=== PATIENT | male | born 1940 | race Caucasian/White ===

== ENCOUNTER 2016-07-20 16:50 | Inpatient (IN) | payer MEDICARE ==
[2016-07-20] MEDS ORDERED: cefTRIAXone(*) 1 GM in NS 0.9% 50 ML* 50 ML IVPB ONE (17:05)
[2016-07-20] MEDS ORDERED: Albuterol/Ipratropium NEB.SOL* Albuterol 2.5 MG/Ipratropium 0.5 MG 3 ML INH ONE (17:05)
[2016-07-20] MEDS ORDERED: methylPREDNISolone 125 MG* 2 ML VIAL IV ONE (17:05)
[2016-07-20] MEDS ORDERED: Azithromycin IV(*) 500 MG in NS 0.9% 250 ML* 250 ML IVPB ONE (17:06)
[2016-07-20] MEDS ORDERED: NS 0.9% 1000 ML* 1,000 ML IV SCH (17:15)
[2016-07-20 17:36] LABS: Hematocrit 35 % (42-52); Hemoglobin 10.9 g/dl (14.0-18.0); Mean Corpuscular HGB Conc 32 g/dl (31-36); Mean Corpuscular Hemoglobin 31 pg (27-31); Mean Corpuscular Volume 99 fL (80-94); Mean Platelet Volume 9 um3 (7.4-10.4); Red Blood Count 3.51 10^6/ul (4.0-5.4); Red Cell Distribution Width 17 % (10.5-15); White Blood Count 11.8 10^3/ul (3.5-10.8)
[2016-07-20] MEDS ORDERED: cefTRIAXone(*) 1 GM ADVAN/BAG ONE (17:47)
[2016-07-20 17:56] LABS: ALT 8 U/L (7-52); AST 20 U/L (13-39); Albumin 3.4 g/dL (3.2-5.2); Alkaline Phosphatase 62 U/L (34-104); Anion Gap 8 mmol/L (2-11); BUN/Creatinine Ratio 18.3 (8-20); Blood Urea Nitrogen 38 mg/dL (6-24); C Reactive Protein 78.91 mg/L (< 5.00); CO2 Carbon Dioxide 25 mmol/L (22-32); Calcium 9.2 mg/dL (8.6-10.3); Chloride 99 mmol/L (101-111); Creatine Kinase 40 U/L (10-223); EGFR African American 40.3 (>60); EGFR Non-African American 31.4 (>60); Globulin 4.3 g/dL (2-4); Glucose 105 mg/dL (70-100); Lipase < 10 U/L (11.0-82.0); Magnesium 2.1 mg/dL (1.9-2.7); Potassium 4.4 mmol/L (3.5-5.0); Sodium 132 mmol/L (133-145); Total Protein 7.7 g/dL (6.4-8.9)
[2016-07-20 17:58] LABS: Troponin I 0.01 ng/mL (<0.04)
[2016-07-20] MEDS ORDERED: Azithromycin IV* 500 MG ADVAN VIAL IVPB ONE (18:13)
--- NOTE | 2016-07-20 18:58 | RAD ---
Indication: Shortness of breath. Single frontal view of the chest performed at 1730 hours was reviewed. Comparison is made with previous exam dated March 28, 2016. Hyperinflated lung hamilton with cardiomegaly is noted. Chronic interstitial disease is noted. When compared to previous exam right pleural effusion appears to be improved. IMPRESSION: CARDIOMEGALY WITH PROMINENT INTERSTITIAL MARKINGS SUSPICIOUS FOR VASCULAR CONGESTION SUPERIMPOSED UPON COPD.
[2016-07-20] MEDS ORDERED: Furosemide IV* 10 MG/ML VIAL (40 MG) IV ONE (19:05)
--- NOTE | 2016-07-20 19:06 | ED ---
Debra Ogden Alok, scribed for Molina Reyes MD on 07/20/16 at 1742 . Shortness of Breath - HPI Summary HPI Summary: Patient is a 75 year-old male BIBA to [facility] with constant SOB at rest. He states that his symptoms began 2 weeks ago, worse today. He was given a breathing treatment en route by EMS which has improved his symptoms. He states that his symptoms are worse with exertion. Positive diaphoresis and unproductive cough. Denies any fever, chest pain, or lower extremity edema. - History of Current Complaint Chief Complaint: EDShortnessOfBreath Time Seen by Provider: 07/20/16 17:01 Hx Obtained From: Patient Onset/Duration: Gradual Onset, Lasting Weeks, Still Present Timing: Constant Current Severity: Moderate Dyspnea At: Rest Aggrevating Factors: Movement Alleviating Factors: EMS Tx Associated Signs & Symptoms: Cough (Nonproductive), Diaphoresis - Allergy/Home Medications Allergies/Adverse Reactions: Allergies Allergy/AdvReac Type Severity Reaction Status Date / Time No Known Allergies Allergy Verified 05/09/16 07:55 PMH/Surg Hx/FS Hx/Imm Hx Cardiovascular History: Reports: Hx Atrial Fibrillation Respiratory History: Reports: Hx Chronic Obstructive Pulmonary Disease (COPD) Sensory History: Reports: Hx Contacts or Glasses - wears glassesw but does not have with him Denies: Hx Cataracts, Hx Eye Injury, Hx Eye Prosthesis, Hx Glaucoma, Hx Legally Blind, Hx Macular Degeneration, Hx Vision Problem, Hx Deafness, Hx Hearing Aid, Hx Hearing Problem, Other Sensory Impairments Opthamlomology History: Reports: Hx Contacts or Glasses - wears glassesw but does not have with him Denies: Hx Cataracts, Hx Eye Injury, Hx Eye Prosthesis, Hx Glaucoma, Hx Legally Blind, Hx Macular Degeneration, Hx Vision Problem, Other Sensory Impairments Infectious Disease History: Denies: Traveled Outside the [place] in Last 30 Days - Family History Known Family History: Negative: Diabetes - Social History Occupation: Retired Lives: With Family - Alcohol Use: None Substance Use Type: Reports: None Smoking Status (MU): Former Smoker Type: Cigarettes Have You Smoked in the Last Year: No Review of Systems Positive: Skin Diaphoresis. Negative: Fever Negative: Chest Pain Positive: Shortness Of Breath, Cough - Nonproductive Negative: Edema All Other Systems Reviewed And Are Negative: Yes Physical Exam - Summary Physical Exam Summary: General: Well-appearing, no pain distress Skin: Warm, color reflects adequate perfusion, dry Head/Face: Normal Eyes: EOMI, LETICIA ENT: Normal Neck: Supple, nontender Respiratory: Mild respiratory distress. Wheezes and rhonchi bilaterally Cardiovascular: RRR Abdominal: Nontender, soft Bowel: Present Misc: Normal; strength/ROM intact Neuro: Normal; sensory/motor intact, A&Ox3 Psych: Affect/mood appropriate Triage Information Reviewed: Yes Vital Signs On Initial Exam: Initial Vitals Temp 98.6 F 07/20/16 17:00 Vital Signs Reviewed: Yes Diagnostics - Vital Signs Vital Signs Temp Pulse Resp BP Pulse Ox 07/20/16 17:25 69 18 85/68 91 07/20/16 17:15 71 18 98 07/20/16 17:02 72 17 96 07/20/16 17:01 150/85 07/20/16 17:00 98.6 F - Laboratory Lab Results: Lab Results 07/20/16 07/20/16 07/20/16 Range/Units 17:10 17:10 17:10 WBC 11.8 H (3.5-10.8) 10^3/ul RBC 3.51 L (4.0-5.4) 10^6/ul Hgb 10.9 L (14.0-18.0) g/dl Hct 35 L (42-52) % MCV 99 H (80-94) fL MCH 31 (27-31) pg MCHC 32 (31-36) g/dl RDW 17 H (10.5-15) % Plt Count 190 (150-450) 10^3/ul MPV 9 (7.4-10.4) um3 Neut % (Auto) 79.5 (38-83) % Lymph % (Auto) 8.9 L (25-47) % Cochran % (Auto) 10.3 H (1-9) % Eos % (Auto) 0.8 (0-6) % Baso % (Auto) 0.5 (0-2) % Absolute Neuts (auto) 9.4 H (1.5-7.7) 10^3/ul Absolute Lymphs (auto) 1.0 (1.0-4.8) 10^3/ul Absolute Monos (auto) 1.2 H (0-0.8) 10^3/ul Absolute Eos (auto) 0.1 (0-0.6) 10^3/ul Absolute Basos (auto) 0.1 (0-0.2) 10^3/ul Absolute Nucleated RBC 0 10^3/ul Nucleated RBC % 0 INR (Anticoag Therapy) 1.89 H (0.89-1.11) APTT 32.4 (26.0-36.3) seconds Sodium 132 L (133-145) mmol/L Potassium 4.4 (3.5-5.0) mmol/L Chloride 99 L (101-111) mmol/L Carbon Dioxide 25 (22-32) mmol/L Anion Gap 8 (2-11) mmol/L BUN 38 H (6-24) mg/dL Creatinine 2.08 H (0.67-1.17) mg/dL Est GFR ( Amer) 40.3 (>60) Est GFR (Non-Af Amer) 31.4 (>60) BUN/Creatinine Ratio 18.3 (8-20) Glucose 105 H (70-100) mg/dL Lactic Acid (0.5-2.0) mmol/L Calcium 9.2 (8.6-10.3) mg/dL Magnesium 2.1 (1.9-2.7) mg/dL Total Bilirubin 0.90 (0.2-1.0) mg/dL AST 20 (13-39) U/L ALT 8 (7-52) U/L Alkaline Phosphatase 62 (34-104) U/L Total Creatine Kinase 40 (10-223) U/L CK-MB (CK-2) 4.7 (0.6-6.3) ng/mL Troponin I 0.01 (<0.04) ng/mL C-Reactive Protein 78.91 H (< 5.00) mg/L B-Natriuretic Peptide ( - 100) pg/mL Total Protein 7.7 (6.4-8.9) g/dL Albumin 3.4 (3.2-5.2) g/dL Globulin 4.3 H (2-4) g/dL Albumin/Globulin Ratio 0.8 L (1-3) Lipase < 10 L (11.0-82.0) U/L 07/20/16 07/20/16 Range/Units 17:10 17:10 WBC (3.5-10.8) 10^3/ul RBC (4.0-5.4) 10^6/ul Hgb (14.0-18.0) g/dl Hct (42-52) % MCV (80-94) fL MCH (27-31) pg MCHC (31-36) g/dl RDW (10.5-15) % Plt Count (150-450) 10^3/ul MPV (7.4-10.4) um3 Neut % (Auto) (38-83) % Lymph % (Auto) (25-47) % Cochran % (Auto) (1-9) % Eos % (Auto) (0-6) % Baso % (Auto) (0-2) % Absolute Neuts (auto) (1.5-7.7) 10^3/ul Absolute Lymphs (auto) (1.0-4.8) 10^3/ul Absolute Monos (auto) (0-0.8) 10^3/ul Absolute Eos (auto) (0-0.6) 10^3/ul Absolute Basos (auto) (0-0.2) 10^3/ul Absolute Nucleated RBC 10^3/ul Nucleated RBC % INR (Anticoag Therapy) (0.89-1.11) APTT (26.0-36.3) seconds Sodium (133-145) mmol/L Potassium (3.5-5.0) mmol/L Chloride (101-111) mmol/L Carbon Dioxide (22-32) mmol/L Anion Gap (2-11) mmol/L BUN (6-24) mg/dL Creatinine (0.67-1.17) mg/dL Est GFR ( Amer) (>60) Est GFR (Non-Af Amer) (>60) BUN/Creatinine Ratio (8-20) Glucose (70-100) mg/dL Lactic Acid 1.7 (0.5-2.0) mmol/L Calcium (8.6-10.3) mg/dL Magnesium (1.9-2.7) mg/dL Total Bilirubin (0.2-1.0) mg/dL AST (13-39) U/L ALT (7-52) U/L Alkaline Phosphatase (34-104) U/L Total Creatine Kinase (10-223) U/L CK-MB (CK-2) (0.6-6.3) ng/mL Troponin I (<0.04) ng/mL C-Reactive Protein (< 5.00) mg/L B-Natriuretic Peptide 733 H ( - 100) pg/mL Total Protein (6.4-8.9) g/dL Albumin (3.2-5.2) g/dL Globulin (2-4) g/dL Albumin/Globulin Ratio (1-3) Lipase (11.0-82.0) U/L Result Diagrams: 07/20/16 17:10 07/20/16 17:10 Lab Statement: Any lab studies that have been ordered have been reviewed, and results considered in the medical decision making process. Course/Dx - Course Assessment/Plan: ADMIT HOSPITALIST STABLE. - Diagnoses Provider Diagnoses: COPD (chronic obstructive pulmonary disease), CHF (congestive heart failure) Discharge - Discharge Plan Condition: Stable Disposition: ADMITTED TO [facility] Referrals: Jd Delgado MD [Primary Care Provider] - The documentation as recorded by the Debra lay Alok accurately reflects the service I personally performed and the decisions made by , Molina Reyes MD.
[2016-07-20] MEDS ORDERED: Albuterol 2.5 MG/3 ML NEB.SOL* (0.083%) INH PRN (19:43)
--- NOTE | 2016-07-20 21:10 | HP ---
HISTORY AND PHYSICAL: DATE OF ADMISSION: 07/20/16 PRIMARY CARE PHYSICIAN: Dr. Delgado. CHIEF COMPLAINT: Shortness of breath. HISTORY OF PRESENT ILLNESS: Mr. Jay is a 75-year-old man with a past medical history of COPD, on 3 L of home oxygen; AFib, on Eliquis; systolic CHF; CKD, who presents to the hospital with progressive shortness of breath. The patient states his symptoms began a little over 1 week ago with some mild shortness of breath with exertion; however, the past few days, especially today , it became much worse. He noticed that when he just walks to the bathroom and back, he gets profusely short of breath. Denies any chest pain. He noticed he has been wheezing a lot more and may be a slight increase in his cough. Denies any fever, chills. His cough is nonproductive. He states his has been sick recently with sinusitis and a cough. The patient had a flu shot this year. He is a former smoker. Denies any rhinorrhea. He has been using his home Dulera and felt that the breathing has progressed to the point where he needed to come to the hospital for further evaluation. PAST MEDICAL HISTORY: AFib, on Eliquis; COPD; CHF; CKD. PAST SURGICAL HISTORY: None. HOME MEDICATIONS: 1. Amiodarone 200 mg by mouth daily. 2. Potassium chloride 20 mEq by mouth daily. 3. Dulera 2 puffs inhaled 2 times daily. 4. Metoprolol succinate 50 mg by mouth daily. 5. Lasix 20 mg by mouth daily. 6. Diltiazem 120 mg by mouth daily. 7. Apixaban 5 mg by mouth 2 times daily. ALLERGIES: No known drug allergies. FAMILY HISTORY: Unknown. The patient is adopted. SOCIAL HISTORY: The patient is a former 2- to 1-noaj-ald-day smoker for 60 years, quit about 2 years ago. Denies any alcohol use or illicit drug use. Lives in a trailer with his . REVIEW OF SYSTEMS: A 12-point review of systems is negative except for that as noted in the HPI. PHYSICAL EXAMINATION GENERAL: The patient is a thin elderly male, lying in bed, in no apparent distress. VITAL SIGNS: On admission, temperature 98.6; heart rate 73; respiratory rate 17 ; O2 saturation 96% on 5 L, now weaned to 3 L; blood pressure 150/85. HEENT: Pupils are equal, round, and reactive to light and accommodation. Anicteric sclerae. Dry mucous membranes. NECK: No cervical adenopathy. LUNGS: The patient with poor air movement. Diffuse wheezing throughout. No rales appreciated at the bases. CARDIOVASCULAR: Rhythm sounds are regular. No murmurs, gallops, or rubs. ABDOMEN: Soft, nontender, nondistended. Bowel sounds positive. EXTREMITIES: No cyanosis, clubbing, or edema. NEURO: The patient is alert and oriented x3. No focal neurological deficits. DIAGNOSTIC STUDIES/LAB DATA: White blood cell count of 11.8, hemoglobin of 10.9, hematocrit of 35, platelets of 190. INR 1.89. Sodium of 132, potassium of 4.4, chloride of 99, BUN of 38, creatinine of 2.08, glucose of 105, lactic acid of 1.7. LFTs within normal limits. Troponin of 0.01. CRP of 78.91. B- natriuretic peptide is 733. EKG: Shows sinus rhythm, no acute ischemic changes, personally reviewed. Chest x-ray: Personally reviewed, shows cardiomegaly, hyperexpanded lungs, possibly some increased interstitial markings. ASSESSMENT AND PLAN: Chronic obstructive pulmonary disease exacerbation in a 75 - year-old male with past medical history of atrial fibrillation, chronic obstructive pulmonary disease, systolic congestive heart failure, and chronic kidney disease. 1. Chronic obstructive pulmonary disease exacerbation. The patient received Solu- Medrol in the ED as well as breathing treatments. We will continue round- the-clock DuoNebs, p.r.n. albuterol, and prednisone 40 mg by mouth daily. He received some antibiotics in the emergency department; however, I do not think the patient is infected. We will check a procalcitonin. Hold on any additional antibiotic therapy for now. Continue home supplemental oxygen. 2. Chronic systolic congestive heart failure. I do not think the patient has exacerbation. We will continue home beta neville, Lasix. 3. Atrial fibrillation. Rate is controlled. The patient is in sinus rhythm. Continue home Eliquis, amiodarone, diltiazem, and metoprolol. 4. Chronic kidney disease. The patient's creatinine seems to be slightly higher than it was during his last admission. We will recheck tomorrow and continue to monitor. 5. DVT prophylaxis. Eliquis. 6. Code status: The patient is a full code. TIME SPENT: Total time spent on this admission was 45 minutes, more than half the time spent [id number] with the patient in counseling and coordinating care. CC: Dr. Delgado* [id number]/CPS #: [id number] MTDD
[2016-07-20] MEDS: Apixaban* 5 MG TAB PO SCH (22:05)
[2016-07-20 23:36] LABS: Urine Bilirubin Negative (Negative); Urine Glucose Negative (Negative); Urine Nitrite Negative (Negative)
[2016-07-21] MEDS: Albuterol/Ipratropium NEB.SOL* Albuterol 2.5 MG/Ipratropium 0.5 MG 3 ML INH SCH ×4 (04:16→20:03)
[2016-07-21 05:57] LABS: Hematocrit 27 % (42-52); Mean Corpuscular HGB Conc 34 g/dl (31-36); Mean Corpuscular Hemoglobin 33 pg (27-31); Mean Corpuscular Volume 96 fL (80-94); Mean Platelet Volume 9 um3 (7.4-10.4); Red Blood Count 2.77 10^6/ul (4.0-5.4); Red Cell Distribution Width 17 % (10.5-15); White Blood Count 6.8 10^3/ul (3.5-10.8)
[2016-07-21 06:05] LABS: BUN/Creatinine Ratio 19.6 (8-20); Calcium 8.3 mg/dL (8.6-10.3); EGFR African American 41.3 (>60); EGFR Non-African American 32.1 (>60); Potassium 4.1 mmol/L (3.5-5.0)
[2016-07-21] MEDS: Amiodarone TAB* 200 MG PO SCH (08:40)
[2016-07-21] MEDS: Potassium Chlor TAB* 20 MEQ TAB.ER PO SCH (08:40)
[2016-07-21] MEDS: Furosemide TAB* 20 MG PO SCH (08:40)
[2016-07-21] MEDS: Apixaban* 5 MG TAB PO SCH (08:40)
[2016-07-21] MEDS: Metoprolol Succinate XL TAB* 50 MG PO SCH (08:40)
[2016-07-21] MEDS: predniSONE TAB* 20 MG PO SCH (08:41)
[2016-07-21] MEDS: Diltiazem CD CAP* 120 MG PO SCH (08:41)
--- NOTE | 2016-07-21 11:45 | PN ---
Subjective Date of Service: 07/21/16 Interval History: Patient seen this morning. Feels about the same as yesterday but notices improvement with nebulizer treatments. Still SOB when walking to the bathroom. No fever or chills. Minimal cough. Good PO intake. Family History: Unchanged from Admission Social History: Unchanged from Admission Past Medical History: Unchanged from Admission Objective Active Medications: Albuterol (Ventolin 2.5 Mg/3 Ml Neb.Celsa*) 2.5 mg INH Q2H PRN Albuterol/Ipratropium (Duoneb Neb.Celsa*) 1 neb INH [id number] AWAKE NESS Amiodarone HCl (Cordarone Tab*) 200 mg PO DAILY NESS Apixaban (Eliquis) 2.5 mg PO BID NESS Diltiazem HCl (Cardizem Cd Cap*) 120 mg PO DAILY NESS Furosemide (Lasix Tab*) 20 mg PO DAILY NESS Metoprolol Succinate (Toprol Xl Tab*) 50 mg PO DAILY NESS Potassium Chloride (Klor Con Er Tab*) 20 meq PO DAILY NESS Prednisone (Deltasone Tab*) 40 mg PO DAILY NESS Vital Signs 07/20/16 07/20/16 07/20/16 19:30 20:00 20:45 Temperature 97.5 F Pulse Rate 80 78 100 Respiratory 16 19 20 Rate Blood Pressure 130/72 132/84 135/66 (mmHg) O2 Sat by Pulse 99 89 93 Oximetry 07/20/16 07/20/16 07/21/16 22:28 23:53 03:35 Temperature 97.4 F 96.8 F Pulse Rate 104 145 Respiratory 20 20 20 Rate Blood Pressure 111/49 131/56 (mmHg) O2 Sat by Pulse 94 85 Oximetry 07/21/16 07/21/16 07:29 09:10 Temperature Pulse Rate 67 68 Respiratory 18 16 Rate Blood Pressure 132/64 (mmHg) O2 Sat by Pulse 94 Oximetry Oxygen Devices in Use Now: Nasal Cannula - 5L Appearance: Elderly, M, laying in bed , audibly wheezing Eyes: No Scleral Icterus Ears/Nose/Mouth/Throat: Mucous Membranes Moist Neck: NL Appearance and Movements; NL JVP Respiratory: Symmetrical Chest Expansion and Respiratory Effort, - - Moderate air movement, diffuse wheezing throughout Cardiovascular: NL Sounds; No Murmurs; No JVD, RRR Abdominal: NL Sounds; No Tenderness; No Distention Lymphatic: No Cervical Adenopathy Extremities: No Edema Skin: - - Scattered ecchymoses Neurological: Alert and Oriented x 3 Result Diagrams: 07/21/16 05:15 07/21/16 05:15 Assess/Plan/Problems-Billing Assessment: COPD exacerbation in a 75 yo M with hx of chronic systolic CHF, COPD on home 3L , AFib on eliquis, CKD - Patient Problems (1) COPD exacerbation Current Visit: Yes Comment: Continue prednisone, ATC duonebs, prn albuterol. Patient should go home on Spiriva, Dulera and albuterol inhaler. No evidence of infection, no further ABx needed. On 5L NC, wean as able to home 3L. (2) Chronic systolic CHF (congestive heart failure) Current Visit: Yes Comment: Continue home beta-neville and Lasix (3) Afib Current Visit: Yes Comment: Continue home amiodarone, diltiazem, metoprolol. Eliquis dose decreased due to renal impairment (4) CKD (chronic kidney disease) Current Visit: Yes Comment: Stable (5) DVT prophylaxis Current Visit: No Comment: eliquis Status and Disposition: Inpatient for COPD exacerbation
[2016-07-21 12:08] LABS: Ferritin 335.1 ng/mL (24-336)
[2016-07-21 12:12] LABS: Folate 6.68 ng/mL (>3.99)
[2016-07-21] MEDS: Apixaban* 2.5 MG TAB PO SCH (22:59)
[2016-07-22] MEDS: Albuterol/Ipratropium NEB.SOL* Albuterol 2.5 MG/Ipratropium 0.5 MG 3 ML INH SCH ×4 (00:16→19:34)
[2016-07-22] MEDS: Diltiazem CD CAP* 120 MG PO SCH (08:33)
[2016-07-22] MEDS: Potassium Chlor TAB* 20 MEQ TAB.ER PO SCH (08:33)
[2016-07-22] MEDS: Amiodarone TAB* 200 MG PO SCH (08:33)
[2016-07-22] MEDS: predniSONE TAB* 20 MG PO SCH (08:34)
[2016-07-22] MEDS: Furosemide TAB* 20 MG PO SCH (08:34)
[2016-07-22] MEDS: Metoprolol Succinate XL TAB* 50 MG PO SCH (08:34)
[2016-07-22] MEDS: Apixaban* 2.5 MG TAB PO SCH ×2 (09:53→21:08)
--- NOTE | 2016-07-22 14:06 | PN ---
Subjective Date of Service: 07/22/16 Interval History: Feels much better today. Little cough. Some CASH when walks to BR. No new c/o. Family History: Unchanged from Admission Social History: Unchanged from Admission Past Medical History: Unchanged from Admission Objective Active Medications: Albuterol (Ventolin 2.5 Mg/3 Ml Neb.Celsa*) 2.5 mg INH Q2H PRN PRN Reason: SOB/WHEEZING Albuterol/Ipratropium (Duoneb Neb.Celsa*) 1 neb INH RT.[id number] AWAKE [facility] Last Admin: 07/22/16 13:04 Dose: 1 neb Amiodarone HCl (Cordarone Tab*) 200 mg PO DAILY [facility] Last Admin: 07/22/16 08:33 Dose: 200 mg Apixaban (Eliquis) 2.5 mg PO BID [facility] Last Admin: 07/22/16 09:53 Dose: 2.5 mg Diltiazem HCl (Cardizem Cd Cap*) 120 mg PO DAILY [facility] Last Admin: 07/22/16 08:33 Dose: 120 mg Furosemide (Lasix Tab*) 20 mg PO DAILY [facility] Last Admin: 07/22/16 08:34 Dose: 20 mg Metoprolol Succinate (Toprol Xl Tab*) 50 mg PO DAILY [facility] Last Admin: 07/22/16 08:34 Dose: 50 mg Potassium Chloride (Klor Con Er Tab*) 20 meq PO DAILY [facility] Last Admin: 07/22/16 08:33 Dose: 20 meq Prednisone (Deltasone Tab*) 30 mg PO DAILY [facility] Vital Signs 07/21/16 07/21/16 07/21/16 14:17 14:32 15:03 Temperature 97.4 F Pulse Rate 75 Respiratory 18 18 Rate Blood Pressure 114/55 (mmHg) O2 Sat by Pulse 96 Oximetry 07/21/16 07/21/16 07/21/16 15:52 20:00 20:09 Temperature Pulse Rate 78 Respiratory 20 20 Rate Blood Pressure (mmHg) O2 Sat by Pulse 94 94 Oximetry 07/22/16 07/22/16 07/22/16 00:16 00:20 04:15 Temperature 97.3 F 97.4 F Pulse Rate 87 82 80 Respiratory 18 20 Rate Blood Pressure 150/59 122/55 (mmHg) O2 Sat by Pulse 95 88 Oximetry 07/22/16 07/22/16 07/22/16 04:19 07:45 08:00 Temperature 97.4 F Pulse Rate 73 74 Respiratory 16 16 Rate Blood Pressure 133/62 (mmHg) O2 Sat by Pulse 94 92 95 Oximetry 07/22/16 07/22/16 12:28 13:06 Temperature Pulse Rate 76 88 Respiratory 20 Rate Blood Pressure (mmHg) O2 Sat by Pulse 98 95 Oximetry Oxygen Devices in Use Now: Nasal Cannula - 5L Appearance: Alert, sitting on the edge of his bed. In good spirits. Looks comfortable. Eyes: No Scleral Icterus Ears/Nose/Mouth/Throat: Clear Oropharnyx, Mucous Membranes Moist Neck: NL Appearance and Movements; NL JVP, No Thyroid Enlargement, Masses Respiratory: Symmetrical Chest Expansion and Respiratory Effort, Clear to Percussion - mild diffuse wheezing. Cardiovascular: NL Sounds; No Murmurs; No JVD, RRR, No Edema, - Lymphatic: No Cervical Adenopathy, No Axillary Adenopathy, No Inguinal Adenopathy, No Auricular Adenopathy, - Extremities: No Edema, No Clubbing, Cyanosis, - Skin: - - black raised eschar mid back with 5 cm radius surrounding dusky color , healing excision site. Neurological: Alert and Oriented x 3, NL Sensation Result Diagrams: 07/21/16 05:15 07/21/16 05:15 Additional Lab and Data: Lab Results 07/20/16 07/20/16 07/20/16 Range/Units 17:10 17:10 17:10 WBC 11.8 H (3.5-10.8) 10^3/ul RBC 3.51 L (4.0-5.4) 10^6/ul Hgb 10.9 L (14.0-18.0) g/dl Hct 35 L (42-52) % MCV 99 H (80-94) fL MCH 31 (27-31) pg MCHC 32 (31-36) g/dl RDW 17 H (10.5-15) % Plt Count 190 (150-450) 10^3/ul MPV 9 (7.4-10.4) um3 Neut % (Auto) 79.5 (38-83) % Lymph % (Auto) 8.9 L (25-47) % Republic % (Auto) 10.3 H (1-9) % Eos % (Auto) 0.8 (0-6) % Baso % (Auto) 0.5 (0-2) % Absolute Neuts (auto) 9.4 H (1.5-7.7) 10^3/ul Absolute Lymphs (auto) 1.0 (1.0-4.8) 10^3/ul Absolute Monos (auto) 1.2 H (0-0.8) 10^3/ul Absolute Eos (auto) 0.1 (0-0.6) 10^3/ul Absolute Basos (auto) 0.1 (0-0.2) 10^3/ul Absolute Nucleated RBC 0 10^3/ul Nucleated RBC % 0 INR (Anticoag Therapy) 1.89 H (0.89-1.11) APTT 32.4 (26.0-36.3) seconds Sodium 132 L (133-145) mmol/L Potassium 4.4 (3.5-5.0) mmol/L Chloride 99 L (101-111) mmol/L Carbon Dioxide 25 (22-32) mmol/L Anion Gap 8 (2-11) mmol/L BUN 38 H (6-24) mg/dL Creatinine 2.08 H (0.67-1.17) mg/dL Est GFR ( Amer) 40.3 (>60) Est GFR (Non-Af Amer) 31.4 (>60) BUN/Creatinine Ratio 18.3 (8-20) Glucose 105 H (70-100) mg/dL Lactic Acid (0.5-2.0) mmol/L Calcium 9.2 (8.6-10.3) mg/dL Magnesium 2.1 (1.9-2.7) mg/dL Total Bilirubin 0.90 (0.2-1.0) mg/dL AST 20 (13-39) U/L ALT 8 (7-52) U/L Alkaline Phosphatase 62 (34-104) U/L Total Creatine Kinase 40 (10-223) U/L CK-MB (CK-2) 4.7 (0.6-6.3) ng/mL Troponin I 0.01 (<0.04) ng/mL C-Reactive Protein 78.91 H (< 5.00) mg/L B-Natriuretic Peptide ( - 100) pg/mL Total Protein 7.7 (6.4-8.9) g/dL Albumin 3.4 (3.2-5.2) g/dL Globulin 4.3 H (2-4) g/dL Albumin/Globulin Ratio 0.8 L (1-3) Lipase < 10 L (11.0-82.0) U/L 07/20/16 07/20/16 Range/Units 17:10 17:10 WBC (3.5-10.8) 10^3/ul RBC (4.0-5.4) 10^6/ul Hgb (14.0-18.0) g/dl Hct (42-52) % MCV (80-94) fL MCH (27-31) pg MCHC (31-36) g/dl RDW (10.5-15) % Plt Count (150-450) 10^3/ul MPV (7.4-10.4) um3 Neut % (Auto) (38-83) % Lymph % (Auto) (25-47) % Republic % (Auto) (1-9) % Eos % (Auto) (0-6) % Baso % (Auto) (0-2) % Absolute Neuts (auto) (1.5-7.7) 10^3/ul Absolute Lymphs (auto) (1.0-4.8) 10^3/ul Absolute Monos (auto) (0-0.8) 10^3/ul Absolute Eos (auto) (0-0.6) 10^3/ul Absolute Basos (auto) (0-0.2) 10^3/ul Absolute Nucleated RBC 10^3/ul Nucleated RBC % INR (Anticoag Therapy) (0.89-1.11) APTT (26.0-36.3) seconds Sodium (133-145) mmol/L Potassium (3.5-5.0) mmol/L Chloride (101-111) mmol/L Carbon Dioxide (22-32) mmol/L Anion Gap (2-11) mmol/L BUN (6-24) mg/dL Creatinine (0.67-1.17) mg/dL Est GFR ( Amer) (>60) Est GFR (Non-Af Amer) (>60) BUN/Creatinine Ratio (8-20) Glucose (70-100) mg/dL Lactic Acid 1.7 (0.5-2.0) mmol/L Calcium (8.6-10.3) mg/dL Magnesium (1.9-2.7) mg/dL Total Bilirubin (0.2-1.0) mg/dL AST (13-39) U/L ALT (7-52) U/L Alkaline Phosphatase (34-104) U/L Total Creatine Kinase (10-223) U/L CK-MB (CK-2) (0.6-6.3) ng/mL Troponin I (<0.04) ng/mL C-Reactive Protein (< 5.00) mg/L B-Natriuretic Peptide 733 H ( - 100) pg/mL Total Protein (6.4-8.9) g/dL Albumin (3.2-5.2) g/dL Globulin (2-4) g/dL Albumin/Globulin Ratio (1-3) Lipase (11.0-82.0) U/L Assess/Plan/Problems-Billing Assessment: COPD exacerbation in a 75 yo M with hx of chronic systolic CHF, COPD on home 3L , AFib on eliquis, CKD - Patient Problems (1) COPD exacerbation Current Visit: Yes Status: Acute Code(s): J44.1 - CHRONIC OBSTRUCTIVE PULMONARY DISEASE W (ACUTE) EXACERBATION SNOMED Code(s): 159757699 Comment: Continue prednisone taper, ATC duonebs, prn albuterol. Patient should go home on Spiriva, Dulera and albuterol inhaler. No evidence of infection, no further ABx needed. On 5L NC, wean as able to home 3L. (2) Afib Current Visit: Yes Status: Acute Code(s): I48.91 - UNSPECIFIED ATRIAL FIBRILLATION SNOMED Code(s): 24710978 Comment: Continue home amiodarone, diltiazem, metoprolol. Eliquis dose decreased due to renal impairment (3) CKD (chronic kidney disease) Current Visit: Yes Status: Acute Code(s): N18.9 - CHRONIC KIDNEY DISEASE, UNSPECIFIED SNOMED Code(s): 261408842 Comment: Worse than 04/13, will check PVR by scan. Status and Disposition: Inpatient for COPD exacerbation
[2016-07-23] MEDS: Albuterol/Ipratropium NEB.SOL* Albuterol 2.5 MG/Ipratropium 0.5 MG 3 ML INH SCH ×2 (00:59→07:22)
[2016-07-23 07:52] VITALS: BP 133/70
[2016-07-23] MEDS: Apixaban* 2.5 MG TAB PO SCH (07:52)
[2016-07-23] MEDS: Metoprolol Succinate XL TAB* 50 MG PO SCH (07:53)
[2016-07-23] MEDS: Potassium Chlor TAB* 20 MEQ TAB.ER PO SCH (07:53)
[2016-07-23] MEDS: Furosemide TAB* 20 MG PO SCH (07:53)
[2016-07-23] MEDS: Amiodarone TAB* 200 MG PO SCH (07:53)
[2016-07-23] MEDS: Diltiazem CD CAP* 120 MG PO SCH (07:53)
[2016-07-23] MEDS ORDERED: predniSONE TAB* 10 MG PO SCH (09:00)
--- NOTE | 2016-07-23 10:14 | DCNOTE ---
Subjective Date of Service: 07/23/16 Interval History: Feeling better, anxious to go home. No new c/o. Family History: Unchanged from Admission Social History: Unchanged from Admission Past Medical History: Unchanged from Admission Objective Active Medications: Albuterol (Ventolin 2.5 Mg/3 Ml Neb.Celsa*) 2.5 mg INH Q2H PRN PRN Reason: SOB/WHEEZING Albuterol/Ipratropium (Duoneb Neb.Celsa*) 1 neb INH [id number] AWAKE [facility] Last Admin: 07/23/16 07:22 Dose: 1 neb Amiodarone HCl (Cordarone Tab*) 200 mg PO DAILY [facility] Last Admin: 07/23/16 07:53 Dose: 200 mg Apixaban (Eliquis) 2.5 mg PO BID [facility] Last Admin: 07/23/16 07:52 Dose: 2.5 mg Diltiazem HCl (Cardizem Cd Cap*) 120 mg PO DAILY [facility] Last Admin: 07/23/16 07:53 Dose: 120 mg Furosemide (Lasix Tab*) 20 mg PO DAILY [facility] Last Admin: 07/23/16 07:53 Dose: 20 mg Metoprolol Succinate (Toprol Xl Tab*) 50 mg PO DAILY [facility] Last Admin: 07/23/16 07:53 Dose: 50 mg Potassium Chloride (Klor Con Er Tab*) 20 meq PO DAILY [facility] Last Admin: 07/23/16 07:53 Dose: 20 meq Prednisone (Deltasone Tab*) 30 mg PO DAILY [facility] Last Admin: 07/23/16 07:52 Dose: 30 mg Vital Signs 07/22/16 07/22/16 07/22/16 12:28 13:06 16:02 Temperature Pulse Rate 76 88 74 Respiratory 20 20 Rate Blood Pressure 141/65 (mmHg) O2 Sat by Pulse 98 95 92 Oximetry 07/22/16 07/22/16 07/22/16 19:34 19:48 21:15 Temperature 97.2 F Pulse Rate 86 81 Respiratory 22 16 Rate Blood Pressure 137/66 (mmHg) O2 Sat by Pulse 93 96 Oximetry 07/23/16 07/23/16 07/23/16 00:52 00:59 07:25 Temperature 97.3 F Pulse Rate 84 88 Respiratory 16 16 Rate Blood Pressure 137/58 (mmHg) O2 Sat by Pulse 94 92 Oximetry 07/23/16 07/23/16 07:40 08:00 Temperature Pulse Rate 78 Respiratory 16 16 Rate Blood Pressure 133/70 (mmHg) O2 Sat by Pulse Oximetry Oxygen Devices in Use Now: Nasal Cannula - 5L Appearance: Alert, sitting on the edge of his bed. In good sopirits. Looks comfortable. Eyes: No Scleral Icterus Ears/Nose/Mouth/Throat: Clear Oropharnyx, Mucous Membranes Moist Neck: NL Appearance and Movements; NL JVP, No Thyroid Enlargement, Masses Respiratory: Symmetrical Chest Expansion and Respiratory Effort, Clear to Percussion, - - diminished BS BL Cardiovascular: NL Sounds; No Murmurs; No JVD, RRR, No Edema, - Extremities: No Edema, No Clubbing, Cyanosis, - Neurological: Alert and Oriented x 3, NL Sensation Result Diagrams: 07/21/16 05:15 07/21/16 05:15 Additional Lab and Data: Lab Results 07/20/16 07/20/16 07/20/16 Range/Units 17:10 17:10 17:10 WBC 11.8 H (3.5-10.8) 10^3/ul RBC 3.51 L (4.0-5.4) 10^6/ul Hgb 10.9 L (14.0-18.0) g/dl Hct 35 L (42-52) % MCV 99 H (80-94) fL MCH 31 (27-31) pg MCHC 32 (31-36) g/dl RDW 17 H (10.5-15) % Plt Count 190 (150-450) 10^3/ul MPV 9 (7.4-10.4) um3 Neut % (Auto) 79.5 (38-83) % Lymph % (Auto) 8.9 L (25-47) % [place] % (Auto) 10.3 H (1-9) % Eos % (Auto) 0.8 (0-6) % Baso % (Auto) 0.5 (0-2) % Absolute Neuts (auto) 9.4 H (1.5-7.7) 10^3/ul Absolute Lymphs (auto) 1.0 (1.0-4.8) 10^3/ul Absolute Monos (auto) 1.2 H (0-0.8) 10^3/ul Absolute Eos (auto) 0.1 (0-0.6) 10^3/ul Absolute Basos (auto) 0.1 (0-0.2) 10^3/ul Absolute Nucleated RBC 0 10^3/ul Nucleated RBC % 0 INR (Anticoag Therapy) 1.89 H (0.89-1.11) APTT 32.4 (26.0-36.3) seconds Sodium 132 L (133-145) mmol/L Potassium 4.4 (3.5-5.0) mmol/L Chloride 99 L (101-111) mmol/L Carbon Dioxide 25 (22-32) mmol/L Anion Gap 8 (2-11) mmol/L BUN 38 H (6-24) mg/dL Creatinine 2.08 H (0.67-1.17) mg/dL Est GFR ( Amer) 40.3 (>60) Est GFR (Non-Af Amer) 31.4 (>60) BUN/Creatinine Ratio 18.3 (8-20) Glucose 105 H (70-100) mg/dL Lactic Acid (0.5-2.0) mmol/L Calcium 9.2 (8.6-10.3) mg/dL Magnesium 2.1 (1.9-2.7) mg/dL Total Bilirubin 0.90 (0.2-1.0) mg/dL AST 20 (13-39) U/L ALT 8 (7-52) U/L Alkaline Phosphatase 62 (34-104) U/L Total Creatine Kinase 40 (10-223) U/L CK-MB (CK-2) 4.7 (0.6-6.3) ng/mL Troponin I 0.01 (<0.04) ng/mL C-Reactive Protein 78.91 H (< 5.00) mg/L B-Natriuretic Peptide ( - 100) pg/mL Total Protein 7.7 (6.4-8.9) g/dL Albumin 3.4 (3.2-5.2) g/dL Globulin 4.3 H (2-4) g/dL Albumin/Globulin Ratio 0.8 L (1-3) Lipase < 10 L (11.0-82.0) U/L 07/20/16 07/20/16 Range/Units 17:10 17:10 WBC (3.5-10.8) 10^3/ul RBC (4.0-5.4) 10^6/ul Hgb (14.0-18.0) g/dl Hct (42-52) % MCV (80-94) fL MCH (27-31) pg MCHC (31-36) g/dl RDW (10.5-15) % Plt Count (150-450) 10^3/ul MPV (7.4-10.4) um3 Neut % (Auto) (38-83) % Lymph % (Auto) (25-47) % [place] % (Auto) (1-9) % Eos % (Auto) (0-6) % Baso % (Auto) (0-2) % Absolute Neuts (auto) (1.5-7.7) 10^3/ul Absolute Lymphs (auto) (1.0-4.8) 10^3/ul Absolute Monos (auto) (0-0.8) 10^3/ul Absolute Eos (auto) (0-0.6) 10^3/ul Absolute Basos (auto) (0-0.2) 10^3/ul Absolute Nucleated RBC 10^3/ul Nucleated RBC % INR (Anticoag Therapy) (0.89-1.11) APTT (26.0-36.3) seconds Sodium (133-145) mmol/L Potassium (3.5-5.0) mmol/L Chloride (101-111) mmol/L Carbon Dioxide (22-32) mmol/L Anion Gap (2-11) mmol/L BUN (6-24) mg/dL Creatinine (0.67-1.17) mg/dL Est GFR ( Amer) (>60) Est GFR (Non-Af Amer) (>60) BUN/Creatinine Ratio (8-20) Glucose (70-100) mg/dL Lactic Acid 1.7 (0.5-2.0) mmol/L Calcium (8.6-10.3) mg/dL Magnesium (1.9-2.7) mg/dL Total Bilirubin (0.2-1.0) mg/dL AST (13-39) U/L ALT (7-52) U/L Alkaline Phosphatase (34-104) U/L Total Creatine Kinase (10-223) U/L CK-MB (CK-2) (0.6-6.3) ng/mL Troponin I (<0.04) ng/mL C-Reactive Protein (< 5.00) mg/L B-Natriuretic Peptide 733 H ( - 100) pg/mL Total Protein (6.4-8.9) g/dL Albumin (3.2-5.2) g/dL Globulin (2-4) g/dL Albumin/Globulin Ratio (1-3) Lipase (11.0-82.0) U/L Assess/Plan/Problems-Billing Assessment: COPD exacerbation in a 75 yo M with hx of chronic systolic CHF, COPD on home 3L , AFib on eliquis, CKD - Patient Problems (1) COPD exacerbation Current Visit: Yes Status: Acute Code(s): J44.1 - CHRONIC OBSTRUCTIVE PULMONARY DISEASE W (ACUTE) EXACERBATION SNOMED Code(s): 082163515 Comment: Continue prednisone taper for 3 days at home. Patient will get home nebulizer and inh budesonide 0.5 mg bid, prn Duoneb. Continue Dulera (2) Afib Current Visit: Yes Status: Acute Code(s): I48.91 - UNSPECIFIED ATRIAL FIBRILLATION SNOMED Code(s): 79155152 Comment: Continue home amiodarone, diltiazem, metoprolol. Eliquis dose decreased due to renal impairment (3) CKD (chronic kidney disease) Current Visit: Yes Status: Acute Code(s): N18.9 - CHRONIC KIDNEY DISEASE, UNSPECIFIED SNOMED Code(s): 830495311 Comment: Worse than 04/13. PVR by scan 14 ml. Stop furosemide and KCL. Needs outpt fup. Status and Disposition: Dicharge now. Almas Delgado.
--- NOTE | 2016-07-23 10:17 | PN ---
Progress Note - Progress Note Note: Time spent on discharge 45 minutes.
--- NOTE | 2016-07-23 10:34 | PN ---
Progress Note - Progress Note Note: Budesonide not covered by his insurance. Rx fluticasone 110 mcg 2 puff bid.
== END 2016-07-23 11:35 | disposition home or self-care (01) | DRG 191 ==
LOC: ED 16:50 → MEDTELE 19:16 → OBSVTOIN 07-21 11:43 → MED 07-21 23:44
PROVIDERS: ADMIT Hospitalist; ATTEND Internal Medicine
DX: J44.1 Chronic obstructive pulmonary disease with (acute) exacerbation (principal); I50.22 Chronic systolic (congestive) heart failure; Z99.81 Dependence on supplemental oxygen; I48.91 Unspecified atrial fibrillation; Z87.891 Personal history of nicotine dependence
CPT/HCPCS: 36415; 71010; 80048; 80053; 81003; 82550; 82553; 82607; 82728; 82746; 83540; 83550; 83605; 83690; 83735; 83880; 84145; 84484; 85025; 85610; 85730; 86140; 87040; 93005; 94640; 94760; A9270-GY; G0378; J0456; J0696; J1940; J2930; J7512

== ENCOUNTER 2016-08-06 18:36 | Inpatient (IN) | payer MEDICARE ==
[2016-08-06] MEDS ORDERED: methylPREDNISolone SOD SUCC* 125 MG 2 ML VIAL IV ONE (19:29)
[2016-08-06] MEDS ORDERED: Albuterol/Ipratropium NEB.SOL* Albuterol 2.5 MG/Ipratropium 0.5 MG 3 ML INH ONE (19:29)
--- NOTE | 2016-08-06 20:02 | RAD ---
Indication: Shortness of breath earlier today. History of cardiovascular disease with atrial fibrillation and congestive heart failure. COPD. Comparison: July 20, 2016 Technique: Upright AP 1935 hours Report: Elevated lung volumes and coarse interstitial markings. The RIGHT costophrenic angle is partially excluded from the [id number]. Probable small pleural effusions. Cardiomegaly. Prominent ill-defined central pulmonary vasculature. IMPRESSION: The constellation of findings is most suggestive of mild pulmonary vascular congestion and interstitial edema superimposed on chronic obstructive pulmonary disease. Correlate with clinical assessment as bronchopneumonia could have a similar appearance.
[2016-08-06 20:09] LABS: Hematocrit 29 % (42-52); Hemoglobin 9.3 g/dl (14.0-18.0); Mean Corpuscular HGB Conc 32 g/dl (31-36); Mean Corpuscular Hemoglobin 32 pg (27-31); Mean Corpuscular Volume 99 fL (80-94); Mean Platelet Volume 9 um3 (7.4-10.4); Red Blood Count 2.91 10^6/ul (4.0-5.4); Red Cell Distribution Width 17 % (10.5-15); White Blood Count 10.4 10^3/ul (3.5-10.8)
[2016-08-06 20:21] LABS: ALT 7 U/L (7-52); Alkaline Phosphatase 57 U/L (34-104); BUN/Creatinine Ratio 16.1 (8-20); Blood Urea Nitrogen 25 mg/dL (6-24); CO2 Carbon Dioxide 25 mmol/L (22-32); Calcium 8.6 mg/dL (8.6-10.3); Chloride 104 mmol/L (101-111); EGFR African American 56.7 (>60); Globulin 3.6 g/dL (2-4); Glucose 93 mg/dL (70-100); Sodium 135 mmol/L (133-145); Total Protein 6.6 g/dL (6.4-8.9)
[2016-08-06] MEDS ORDERED: Azithromycin IV(*) 500 MG in NS 0.9% 250 ML* 250 ML IVPB ONE (20:57)
[2016-08-06] MEDS ORDERED: cefTRIAXone VIAL(*) 1,000 MG in NS 0.9% 50 ML* 50 ML IVPB ONE (20:57)
[2016-08-06 21:21] LABS: Creatine Kinase 31 U/L (10-223)
[2016-08-06 21:24] LABS: Troponin I 0.02 ng/mL (<0.04)
--- NOTE | 2016-08-06 21:27 | ED ---
Sonal Ogden Matthew, scribed for Jose Armando Altamirano on 08/06/16 at 1932 . Shortness of Breath - HPI Summary HPI Summary: A 75 y/o male presents to the ED with SOB since 3-4 days ago. The patient has a Hx of COPD and states he hasn't smoke in a year, but his continues to smoke in their mobile home. Associated symptoms include cough. The patient denies fever and pedal edema. His symptoms are worse with ambulation and excretion. He states that he tries to use the restroom in the middle of the night and returns back to his chair diaphoretic and SOB. The patient is on 3L of home oxygen constantly. The patient is on blood thinners. - History of Current Complaint Chief Complaint: EDShortnessOfBreath Time Seen by Provider: 08/06/16 19:22 Hx Obtained From: Patient Onset/Duration: Gradual Onset, Lasting Days, Still Present Timing: Constant Current Severity: Moderate Dyspnea At: Rest Associated Signs & Symptoms: Cough (Productive), Diaphoresis - Allergy/Home Medications Allergies/Adverse Reactions: Allergies Allergy/AdvReac Type Severity Reaction Status Date / Time No Known Allergies Allergy Verified 08/06/16 19:29 PMH/Surg Hx/FS Hx/Imm Hx Endocrine/Hematology History: Reports: Hx Anticoagulant Therapy - Eliquis Denies: Hx Diabetes, Hx Thyroid Disease Cardiovascular History: Reports: Hx Atrial Fibrillation, Hx Congestive Heart Failure Respiratory History: Reports: Hx Chronic Obstructive Pulmonary Disease (COPD) History: Reports: Hx Chronic Renal Failure Sensory History: Reports: Hx Contacts or Glasses Denies: Hx Cataracts, Hx Eye Injury, Hx Eye Prosthesis, Hx Glaucoma, Hx Legally Blind, Hx Macular Degeneration, Hx Vision Problem, Hx Deafness, Hx Hearing Aid, Hx Hearing Problem, Other Sensory Impairments Opthamlomology History: Reports: Hx Contacts or Glasses Denies: Hx Cataracts, Hx Eye Injury, Hx Eye Prosthesis, Hx Glaucoma, Hx Legally Blind, Hx Macular Degeneration, Hx Vision Problem, Other Sensory Impairments - Surgical History Surgery Procedure, Year, and Place: Cardiac Catheterization (03/2016) - Immunization History Date of Tetanus Vaccine: unkown Date of Influenza Vaccine: Fall 2015 Infectious Disease History: No Infectious Disease History: Denies: Traveled Outside the [place] in Last 30 Days - Family History Known Family History: Negative: Diabetes - Social History Alcohol Use: None Substance Use Type: Reports: None Smoking Status (MU): Former Smoker Type: Cigarettes Have You Smoked in the Last Year: No Review of Systems Constitutional: Negative Negative: Fever Eyes: Negative ENT: Negative Cardiovascular: Negative Positive: Shortness Of Breath, Cough Gastrointestinal: Negative Genitourinary: Negative Musculoskeletal: Negative Negative: Edema Skin: Negative Neurological: Negative Psychological: Normal All Other Systems Reviewed And Are Negative: Yes Physical Exam Triage Information Reviewed: Yes Vital Signs On Initial Exam: Initial Vitals Temp Pulse Resp BP Pulse Ox 98.2 F 53 26 133/58 88 08/06/16 19:00 08/06/16 19:00 08/06/16 19:00 08/06/16 19:00 08/06/16 19:00 Vital Signs Reviewed: Yes Appearance: Positive: No Pain Distress Skin: Positive: Warm, Skin Color Reflects Adequate Perfusion, Dry Head/Face: Positive: Normal Head/Face Inspection Eyes: Positive: EOMI, LETICIA ENT: Positive: Normal ENT inspection Neck: Positive: Supple, Nontender Respiratory/Lung Sounds: Positive: Breath Sounds Present, Wheezes - bilaterally Cardiovascular: Positive: Bradycardia Abdomen Description: Positive: Nontender, Soft Bowel Sounds: Positive: Present Musculoskeletal: Positive: Normal, Strength/ROM Intact Neurological: Positive: Normal, Sensory/Motor Intact, Alert, Oriented to Person Place, Time Psychiatric: Positive: Affect/Mood Appropriate Diagnostics - Vital Signs Vital Signs Temp Pulse Resp BP Pulse Ox 08/06/16 19:00 98.2 F 53 26 133/58 88 - Laboratory Result Diagrams: 08/06/16 19:52 08/06/16 19:52 Lab Statement: Any lab studies that have been ordered have been reviewed, and results considered in the medical decision making process. - Radiology CXR Xray Interpretation: Positive (See Comments) - IMPRESSION: The constellation of findings is most suggestive of mild pulmonary vascular congestion and interstitial edema superimposed on chronic obstructive pulmonary disease. Correlate with clinical assessment as bronchopneumonia could have a similar appearance. Radiology Interpretation Completed By: Radiologist - EKG 20:53 Cardiac Rate: NL - 64 bpm EKG Rhythm: Sinus Rhythm ST Segment: Non-Specific Course/Dx - Course Assessment/Plan: A 75 y/o male presents to the ED with SOB since 3-4 days ago. Labs were reviewed. CXR shows pneumonia. EKG showed NSR at 64 bpm with non- specific ST changes. In the ED, the patient was given Solu-Medrol, DuoNeb, Zithromax, and Rocephin. Discussed the case with Dr. Pina who will admit the patient into his services. - Diagnoses Provider Diagnoses: COPD exacerbation, Pneumonia - Physician Notifications Discussed Care of Patient With: Dr. Pina (Hospitalist) at 21:11 -- Notified of patient's history and will admit the patient into his services. Discharge - Discharge Plan Condition: Stable Disposition: ADMITTED TO [facility] Referrals: Jd Delgado MD [Primary Care Provider] - The documentation as recorded by the Sonal lay Matthew accurately reflects the service I personally performed and the decisions made by , Jose Armando Altamirano.
[2016-08-06] MEDS ORDERED: Furosemide IV* 10 MG/ML 10 ML VIAL (100 MG) IV ONE (21:28)
[2016-08-06 22:25] LABS: Folate > 20.00 ng/mL (>3.99)
[2016-08-06 22:29] LABS: Vitamin B12 436 pg/mL (180-914)
[2016-08-06 22:45] LABS: PCO2 Arterial 32 mmHg (35-45)
[2016-08-06 23:12] LABS: Ferritin 154.8 ng/mL (24-336)
[2016-08-07] MEDS: Albuterol/Ipratropium NEB.SOL* Albuterol 2.5 MG/Ipratropium 0.5 MG 3 ML INH PRN (00:38)
--- NOTE | 2016-08-07 05:42 | HP ---
HOSPITAL MEDICINE HISTORY AND PHYSICAL: DATE OF ADMISSION: 08/06/16 PRIMARY CARE PHYSICIAN: Jd Delgado MD ATTENDING PHYSICIAN: Mkie Pina MD *(dictation provided by Marlena Jones NP) CHIEF COMPLAINT: Shortness of breath. HISTORY OF PRESENT ILLNESS: Mr. Jay is a 75-year-old male with the past medical history of AFib, on Eliquis; COPD; CHF; and CKD who presents today to the hospital with concern for shortness of breath. Mr. Jay was last discharged from our hospital on 07/23/16 after being treated for a COPD exacerbation. The patient confirms that he did feel well at the end of that hospitalization; however, over the intervening 3 weeks, he has become more short of breath. He specifically notes shortness of breath and dyspnea on exertion. He states that he used to be able to walk from his chair into the bathroom or into the kitchen without any difficulty, but now by the time he gets back to his chair from that excursion, he is sweaty and out of breath. He denies any worsening cough. He has no fever. He has no chest pain. He denies any swelling in his lower extremities. He does sleep in a chair, but has not been doing that since at least the fall, so that it is not new. At the end of the last hospitalization, Mr. Jay was taken off of his 20 mg a day of Lasix out of concern for worsening of his chronic kidney disease. He states he did complete all of his medications, although he is not sure of the details, but believes that he did done as instructed. In the emergency room Mr. Jay is found to have a chest x-ray that is read as pulmonary vascular congestion, which appears worse than previous. There is no evidence of discrete pneumonia. He is afebrile. He has no leukocytosis. BNP is pending. His BUN and creatinine are better than they had been in quite some time with the creatinine of 1.55 and a BUN of 25. He is anemic, but this is not new. His hemoglobin today is 9.3. He has been showing more profound anemia since his last admission. He denies any dark tarry stools. PAST MEDICAL HISTORY: 1. Atrial fibrillation, on Eliquis. 2. COPD, on 3 L nasal cannula at home. 3. Systolic congestive heart failure with last known ejection fraction of 40% to 45%. 4. CKD, stage 3 to 4. MEDICATIONS: The patient and his family were not able to completely validate the list. They believe that he is essentially on the same medications he was on before. I do think that this list should be verified with pharmacy or patient's primary care physician, but per the last discharge on 07/23/16: 1. Apixaban 2.5 mg p.o. b.i.d. 2. Duo nebulizers p.r.n. 3. Diltiazem CD 120 mg p.o. daily. 4. Metoprolol succinate 50 mg p.o. daily. 5. Amiodarone 200 mg p.o. daily. 6. Budesonide 1 mg inhaled twice daily. 7. Dulera 100/5 mcg 2 puffs inhaled daily. ALLERGIES: No known drug allergies. FAMILY HISTORY: Unknown. The is adopted. SOCIAL HISTORY: The patient was a former 2 to 3 pack per day smoker for 6 years and he quit 2 years ago. There is no report of alcohol or drug use. He said his daughter, Yuridia, is the health care proxy. REVIEW OF SYSTEMS: A 14-point review of systems was completed with Mr. Jay, and all those not mentioned above were negative. PHYSICAL EXAMINATION GENERAL: Mr. Jay is sitting up in the bed, he is in no acute distress. He is calm and cooperative with my examination. VITAL SIGNS: Temperature 98.2, pulse rate 53, respiratory rate 26, O2 saturation 98% on 3 L nasal cannula, blood pressure 133/58. LUNGS: There are no wheezing. Lungs are actually clear. On my estimation today, I am not able to detect any rhonchi or crackles. HEART: S1, S2. No murmur, rub, or gallop and regular. ABDOMEN: Soft and nontender with bowel sounds positive x4. EXTREMITIES: No cyanosis or edema. SKIN: Intact. NEUROLOGIC: He is alert and oriented x3. He moves all extremities equally. There is no facial asymmetry or focal weakness. Extraocular movements are intact. DIAGNOSTIC STUDIES/LAB DATA: Sodium 135, potassium is unprocessed, chloride 104, bicarb 25, BUN 25, creatinine 1.55, and glucose 93. Troponin 0.02. WBC 10.4, hemoglobin 9.3, hematocrit 29, and platelet count 208. Chest x-ray is read as pulmonary vascular congestion. EKG shows sinus rhythm with no evidence of ischemia. ASSESSMENT: Mr. Jay is a 75-year-old male with past medical history of chronic obstructive pulmonary disease, on 3 L nasal cannula; atrial fibrillation , on Eliquis; and systolic congestive heart failure who presents today to the hospital with concern for shortness of breath. Plans are for admission to the hospital for the followin. Shortness of breath: I suspect that his shortness of breath is related to systolic congestive heart failure exacerbation based on his chest x-ray and the fact that his furosemide was held for the past 3 weeks. Plan to check a BNP for further corroboration of this theory, but I think that he deserves a one- time dose of Lasix this evening and then we can reassess him in the morning and determine further Lasix dosing from there. I do realize that the patient has fragile kidney function, but I believe that he does need Lasix to improve his respiratory status. I do not see any evidence of chronic obstructive pulmonary disease exacerbation as he has no wheezing on examination. I also see no evidence of pneumonia with no discrete infiltrate, nor leukocytosis, nor fever, nor cough. The patient's troponin is 0.02, plan to repeat x2 and the patient will have telemetry monitoring. In addition to congestive heart failure, he will have I's and O's monitored and he will have daily weights. 2. Atrial fibrillation: Plan to continue Eliquis, metoprolol, and amiodarone. 3. Chronic obstructive pulmonary disease: Continue Dulera Duo nebulizers as needed. O2 as needed. 4. DVT prophylaxis: With Eliquis. 5. Disposition: To telemetry. 7. Code status: Full code. This was reviewed with the patient at the bedside today. TIME SPENT: Approximately 60 minutes was spent in the admission of this patient , more than half of the time was spent with the patient at the bedside reviewing the events leading up to this hospitalization, performing the physical examination, and reviewing my plan of care. MARLENA JONES NP CC: Dr. Jd Delgado MD* [id number]/[facility] #: [id number] KARI
[2016-08-07 07:01] LABS: BUN/Creatinine Ratio 15.8 (8-20); C Reactive Protein 46.63 mg/L (< 5.00); Calcium 8.5 mg/dL (8.6-10.3); EGFR African American 48.6 (>60); EGFR Non-African American 37.8 (>60); Potassium 4.5 mmol/L (3.5-5.0)
[2016-08-07] MEDS: Mometasone/Formoter 100/5 MDI INH SCH ×2 (08:37→21:52)
[2016-08-07] MEDS ORDERED: Apixaban* 5 MG TAB PO SCH (09:00)
[2016-08-07] MEDS: Amiodarone TAB* 200 MG PO SCH (09:14)
[2016-08-07] MEDS: Apixaban* 2.5 MG TAB PO SCH ×2 (09:14→21:16)
[2016-08-07] MEDS: Metoprolol Succinate XL TAB* 50 MG PO SCH (09:14)
[2016-08-07] MEDS: Diltiazem CD CAP* 120 MG PO SCH (09:15)
[2016-08-07] MEDS ORDERED: Furosemide IV* 10 MG/ML 10 ML VIAL (100 MG) IV ONE (10:01)
[2016-08-07] MEDS ORDERED: Furosemide IV* 10 MG/ML 2 ML VIAL (20 MG) IV ONE (10:01)
[2016-08-07] MEDS ORDERED: Furosemide IV* 10 MG/ML 2 ML VIAL (20 MG) ONE (10:33)
[2016-08-07 10:34] LABS: Urine Bilirubin Negative (Negative); Urine Glucose Negative (Negative); Urine Nitrite Negative (Negative)
--- NOTE | 2016-08-07 14:23 | PN ---
Subjective Date of Service: 08/07/16 Interval History: . Patient reports he feels much better today. Less SOB but continues to have some SOB with exertion above his baseline. Reports cough with thin "watery sputum". Reports orthopnea but states he always sleeps sitting up in a recliner. No LE swelling. Denies fever or chills. Objective Active Medications: Albuterol/Ipratropium (Duoneb Neb.Celsa*) 1 neb INH Q4H PRN PRN Reason: SOB/WHEEZING Last Admin: 08/07/16 00:38 Dose: 1 neb Amiodarone HCl (Cordarone Tab*) 200 mg PO DAILY [facility] Last Admin: 08/07/16 09:14 Dose: 200 mg Apixaban (Eliquis) 2.5 mg PO BID [facility] Last Admin: 08/07/16 09:14 Dose: 2.5 mg Diltiazem HCl (Cardizem Cd Cap*) 120 mg PO DAILY [facility] Last Admin: 08/07/16 09:15 Dose: 120 mg Metoprolol Succinate (Toprol Xl Tab*) 50 mg PO DAILY [facility] Last Admin: 08/07/16 09:14 Dose: 50 mg Mometasone Furoate/Formoterol Fumar (Dulera 100/5 Mdi*) 2 puff INH BID [facility] Last Admin: 08/07/16 08:37 Dose: 2 puff Vital Signs 08/06/16 08/06/16 08/06/16 21:30 22:00 23:50 Temperature Pulse Rate Respiratory 17 22 19 Rate Blood Pressure 129/53 131/54 (mmHg) O2 Sat by Pulse Oximetry 08/06/16 08/06/16 08/07/16 23:56 23:58 00:38 Temperature 97.3 F 97.4 F Pulse Rate 71 69 69 Respiratory 16 19 18 Rate Blood Pressure 130/57 140/58 (mmHg) O2 Sat by Pulse 98 98 Oximetry 08/07/16 08/07/16 08/07/16 04:08 07:31 08:00 Temperature 97.5 F 97.5 F Pulse Rate 73 67 Respiratory 16 16 22 Rate Blood Pressure 120/57 135/57 (mmHg) O2 Sat by Pulse 91 97 Oximetry 08/07/16 08/07/16 08:40 11:42 Temperature 97.3 F Pulse Rate 88 68 Respiratory 16 16 Rate Blood Pressure 136/61 (mmHg) O2 Sat by Pulse 93 Oximetry Oxygen Devices in Use Now: Nasal Cannula - 3L NC Appearance: 75 yo chronically ill appearing male sitting up in bed in NAD. A+O x3 Eyes: No Scleral Icterus, PERRLA Ears/Nose/Mouth/Throat: NL Teeth, Lips, Gums, Mucous Membranes Moist Neck: NL Appearance and Movements; NL JVP Respiratory: Symmetrical Chest Expansion and Respiratory Effort, - - Crackles right base; left diminished. Cardiovascular: NL Sounds; No Murmurs; No JVD, RRR, No Edema Abdominal: NL Sounds; No Tenderness; No Distention Extremities: No Edema, No Clubbing, Cyanosis Skin: No Rash or Ulcers, No Nodules or Sclerosis Neurological: Alert and Oriented x 3, NL Sensation, NL Gait, NL Muscle Strength and Tone Lines/Tubes/Other Access: Clean, Dry and Intact Peripheral IV Nutrition: Taking PO's Result Diagrams: 08/06/16 19:52 08/07/16 05:46 Microbiology and Other Data: Microbiology 08/07/16 10:30 Stool Occult Blood (INOCENCIA) - Final Stool Assess/Plan/Problems-Billing Assessment: 75 yo male with a PMH of afib on Eliquis, COPD, CHF, and CKD who presented to the ED on 08/06 with c/o SOB. - Patient Problems (1) Acute systolic CHF (congestive heart failure) Comment: - Suspect CHF exacerbation. Recent hospitalization for COPD exacerbation with acute on chronic kidney failure and taken off lasix. Improvement overnight, continues on home oxygen of 3l NC. - lasix 40 mg IV x1 last night, given 20 mg IV x 1 today - Last echo shows mod MR and EF 40-45% - CRIST[facility] 2016 - Cath showed no significant CAD, mod to severe pulm HTN - 2016 - Daily weights. - continue BB - Monitor renal function - repeat chest xray in am (2) Afib Comment: - Continue home amiodarone, diltiazem, metoprolol. Eliquis dose decreased due to renal impairment (3) COPD (chronic obstructive pulmonary disease) Comment: stable. Continue home INH and nebs (4) DVT prophylaxis Comment: laura (5) Full code status Status and Disposition: inpatient with CHF. Home when medically stable.
[2016-08-08 07:16] LABS: Hematocrit 26 % (42-52); Hemoglobin 8.5 g/dl (14.0-18.0); Mean Corpuscular HGB Conc 33 g/dl (31-36); Mean Corpuscular Hemoglobin 31 pg (27-31); Mean Corpuscular Volume 96 fL (80-94); Mean Platelet Volume 9 um3 (7.4-10.4); Red Blood Count 2.71 10^6/ul (4.0-5.4); Red Cell Distribution Width 17 % (10.5-15); White Blood Count 12.8 10^3/ul (3.5-10.8)
[2016-08-08 07:36] LABS: BUN/Creatinine Ratio 20.7 (8-20); Calcium 8.5 mg/dL (8.6-10.3); EGFR African American 39.3 (>60); EGFR Non-African American 30.5 (>60); Magnesium 2.1 mg/dL (1.9-2.7); Potassium 4.6 mmol/L (3.5-5.0)
[2016-08-08] MEDS: Mometasone/Formoter 100/5 MDI INH SCH ×2 (08:37→21:21)
[2016-08-08] MEDS: Apixaban* 2.5 MG TAB PO SCH ×2 (09:32→20:03)
[2016-08-08] MEDS: Amiodarone TAB* 200 MG PO SCH (09:32)
[2016-08-08] MEDS: Metoprolol Succinate XL TAB* 50 MG PO SCH (09:32)
[2016-08-08] MEDS: Diltiazem CD CAP* 120 MG PO SCH (09:33)
--- NOTE | 2016-08-08 12:11 | PN ---
Subjective Date of Service: 08/08/16 Interval History: . patient reports he "feels better today". Decreased cough, nonproductive. No fevers or chills. No SOB with rest but does have SOB with exertion but states this is his baseline. Objective Active Medications: Albuterol/Ipratropium (Duoneb Neb.Celsa*) 1 neb INH Q4H PRN PRN Reason: SOB/WHEEZING Last Admin: 08/07/16 00:38 Dose: 1 neb Amiodarone HCl (Cordarone Tab*) 200 mg PO DAILY [facility] Last Admin: 08/08/16 09:32 Dose: 200 mg Apixaban (Eliquis) 2.5 mg PO BID [facility] Last Admin: 08/08/16 09:32 Dose: 2.5 mg Diltiazem HCl (Cardizem Cd Cap*) 120 mg PO DAILY [facility] Last Admin: 08/08/16 09:33 Dose: 120 mg Metoprolol Succinate (Toprol Xl Tab*) 50 mg PO DAILY [facility] Last Admin: 08/08/16 09:32 Dose: 50 mg Mometasone Furoate/Formoterol Fumar (Dulera 100/5 Mdi*) 2 puff INH BID [facility] Last Admin: 08/08/16 08:37 Dose: 2 puff Vital Signs 08/07/16 08/07/16 08/07/16 15:22 16:39 19:25 Temperature 98.3 F 97.6 F Pulse Rate 72 75 Respiratory Rate Blood Pressure 134/63 131/59 (mmHg) O2 Sat by Pulse 92 93 Oximetry 08/07/16 08/07/16 08/07/16 19:45 20:00 23:18 Temperature 97.7 F Pulse Rate 75 71 74 Respiratory 16 16 16 Rate Blood Pressure 130/59 (mmHg) O2 Sat by Pulse 93 64 93 Oximetry 08/08/16 08/08/16 08/08/16 04:45 07:36 07:52 Temperature 97.4 F 97.7 F Pulse Rate 72 70 Respiratory 16 18 18 Rate Blood Pressure 132/59 138/67 (mmHg) O2 Sat by Pulse 93 94 Oximetry 08/08/16 08/08/16 08:39 09:13 Temperature 97.2 F Pulse Rate 70 53 Respiratory 16 Rate Blood Pressure 124/53 (mmHg) O2 Sat by Pulse 94 99 Oximetry Oxygen Devices in Use Now: Nasal Cannula - 3L NC Appearance: 75 yo male laying in bed in NAD. A+O x3 Eyes: No Scleral Icterus, PERRLA Ears/Nose/Mouth/Throat: NL Teeth, Lips, Gums, Mucous Membranes Moist Neck: NL Appearance and Movements; NL JVP Respiratory: Symmetrical Chest Expansion and Respiratory Effort, - - right upper rhonchi Cardiovascular: NL Sounds; No Murmurs; No JVD, RRR, No Edema Abdominal: NL Sounds; No Tenderness; No Distention Lymphatic: No Cervical Adenopathy Extremities: No Edema, No Clubbing, Cyanosis Skin: No Rash or Ulcers, No Nodules or Sclerosis Neurological: Alert and Oriented x 3, NL Sensation, NL Gait, NL Muscle Strength and Tone Lines/Tubes/Other Access: Clean, Dry and Intact Peripheral IV Nutrition: Taking PO's Result Diagrams: 08/08/16 06:44 08/08/16 06:44 Microbiology and Other Data: Microbiology 08/07/16 10:30 Stool Occult Blood (INOCENCIA) - Final Stool Assess/Plan/Problems-Billing Assessment: 75 yo male with a PMH of afib on Eliquis, COPD, CHF, and CKD who presented to the ED on 08/06 with c/o SOB. - Patient Problems (1) SOB (shortness of breath) Comment: - Clinically improving. Noted leukocytosis today. Afebrile. Recent hospitalization for COPD exacerbation with acute on chronic kidney failure and taken off lasix 3 weeks ago. continues on home oxygen of 3l NC. Suspect CHF exacerbation vs bronchopneumonia - Last echo shows mod MR and EF 40-45% with moderat pleural effusion - CRISTIAN 2015 - Cath showed no significant CAD, mod to severe pulm HTN - 2016 - Daily weights. - continue BB - Monitor renal function - Admission chest xray showing vascular congestion with COPD but possible bronchopneumonia, was treated in ED with ceftrixone and azithromycin. Possible this is a bronchopneumonia and not CHF. Hold antibiotics and obtain CT chest to determine course. (2) Afib Comment: - Continue home amiodarone, diltiazem, metoprolol. Eliquis dose decreased due to renal impairment (3) Anemia (4) COPD (chronic obstructive pulmonary disease) Comment: stable, no wheezing. Continue home INH and nebs (5) DVT prophylaxis Comment: laura (6) Full code status Status and Disposition: inpatient with SOB. Home when medically stable.
--- NOTE | 2016-08-08 12:42 | RAD ---
Indication: Shortness of breath. 2 views of the chest including dual energy PA views demonstrates no mediastinal shift. Cardiomegaly is noted. Hyperinflated lung hamilton are noted. Likely underlying COPD is noted. There is improvement of the previously identified bibasilar infiltrate with some residual right upper lobe infiltrate.. Emphysematous changes are noted. IMPRESSION: Emphysematous changes. Right upper lobe infiltrate is improved. Right basilar infiltrate also appears to to BE improved compared to the prior exam.
--- NOTE | 2016-08-08 13:28 | RAD ---
Indication: Shortness of breath. CT of the chest performed without IV contrast. Coronal and sagittal reconstructed images were obtained. Inferior thyroid lobes are unremarkable. AP window lymph nodes are noted measuring 9 mm. Precarinal node measures up to 10 mm. No hilar adenopathy is noted. The heart demonstrates a moderate-sized pericardial effusion. The heart is enlarged Lung mahmood demonstrate trachea and major bronchi appear to be patent. Emphysematous changes are noted. Bronchiectasis in the right upper lobe and left upper lobe is noted. There is suggestion of some right upper lobe infiltrate. This may represent pneumonia. Honeycombing of the lung bases is noted worse on the right than on the left. There may be some scarring or atelectasis in the right lung base. Small pleural effusions are noted. The visualized abdominal organs are otherwise unremarkable. IMPRESSION: EMPHYSEMATOUS CHANGES WITH MAHMOOD ARE NOTED WITH LIKELY REACTIVE CYSTS AND PROBABLE PNEUMONIA IN THE RIGHT UPPER LOBE POSTERIORLY. PROBABLE ATELECTASIS AND/OR SCARRING IS NOTED IN THE RIGHT LOWER LOBE. SMALL PLEURAL EFFUSIONS ARE NOTED. THERE IS A MODERATE-SIZED PERICARDIAL EFFUSION NOTED.
--- NOTE | 2016-08-08 17:45 | ECHO ---
Patient: SRINIVAS STEPHENS [facility] Rec#: [id number] : 1940 Date: 08/08/2016 Age: 75y Height: 167.6 cm / 66.0 in Weight: 60.3 kg / 132.9 lbs Sex: M BSA: 1.7 Room#: [facility] Admit Date#: 08/06/2016 Type: Inpatient Referring: Елена Hill Reading: Beck Pradhan MD Hvac Maintenance Technician: Yoana Major RN RDCS CC: Jd Delgado Transthoracic Echocardiogram Indication: Shortness of breath BP: 124/53 HR: 72 Rhythm: NSR Findings History: A. fib, CHF, COPD, CKD, former smoker, PFO Technical Comments: The study quality is fair. The study is technically limited due to the patient's history of COPD. The study is technically limited due to the patient's smoking history. Completed at 1650. Left Ventricle: The left ventricular chamber size is normal. Mild to moderate concentric left ventricular hypertrophy is observed. Global left ventricular wall motion and contractility are within normal limits. Left ventricular systolic function is at the lower limits of normal. The estimated ejection fraction is 50-55%. There is septal flattening of the interventricular septum consistent with right ventricular volume or pressure overload. Abnormal left ventricular diastolic filling is observed, consistent with impaired relaxation. Left Atrium: The left atrium is moderate to severely dilated. Right Ventricle: The right ventricular cavity size is normal. The right ventricular global systolic function is mildly to moderately reduced. Right Atrium: The right atrium is moderately dilated. Aortic Valve: The aortic valve is trileaflet. The aortic valve leaflets are mildly thickened. There is a trace of aortic regurgitation. There is mild aortic stenosis. The mean gradient of the aortic valve is 8 mmHg. The peak instantaneous gradient of the aortic valve is 13 mmHg. The aortic valve area, by peak velocities, is calculated at 1.6 cm2. The aortic valve area, by VTI's, is calculated at 1.5 cm2. Mitral Valve: The mitral valve leaflets are mildly thickened. There is moderate mitral regurgitation. There is no evidence of mitral stenosis. Tricuspid Valve: The tricuspid valve leaflets are normal. There is mild to moderate tricuspid regurgitation. There is evidence of severe pulmonary hypertension. Pericardium: There is a moderate pericardial effusion. There are no signs of significant hemodynamic compromise. The pericardial effusion is seen adjacent to the left ventricle. Aorta: There is no dilatation of the ascending aorta. The aortic arch is not well visualized. The aortic root is normal in size. Pulmonary Artery: The main pulmonary artery appears normal. Venous: The inferior vena cava is dilated. There is a greater than 50% respiratory change in the inferior vena cava dimension. Conclusions Mild to moderate concentric left ventricular hypertrophy is observed. Global left ventricular wall motion and contractility are within normal limits. The estimated ejection fraction is 50-55%. There is septal flattening of the interventricular septum consistent with right ventricular volume or pressure overload. The right ventricular global systolic function is mildly to moderately reduced. The right atrium is moderately dilated. There is a trace of aortic regurgitation. The aortic valve leaflets are mildly thickened. There is mild aortic stenosis. There is moderate mitral regurgitation. There is no evidence of mitral stenosis. There is mild to moderate tricuspid regurgitation. There is evidence of severe pulmonary hypertension. There is a moderate pericardial effusion.It is small anterior to RV but a large locculated effusion is seen posterior to LV There are no signs of significant hemodynamic compromise. There is no dilatation of the ascending aorta. Compared to study of 03/29/16, the LV function is better (now in NSR), the pericardial effusion is sllightly larger but still no hemodynamic effect. The pulm HTN is worse. Measurements Name Value Normal Range RVDdMajor (2D) 3.4 cm (2.2 - 4.4) RAd ISD 4CH 6.2 cm (3.4 - 4.9) RA (A4C)W 3.9 cm (2.9 - 4.6) IVSd (2D) 1.4 cm (0.6 - 1) LVPWd (2D) 1.1 cm (0.6 - 1) LVIDd (2D) 3.6 cm (3.6 - 5.4) LVIDs (2D) 2.4 cm - LV FS (2D) 33 % (25 - 45) Aortic Annulus 1.9 cm (1.4 - 2.6) Ao root diameter (2D) 3.1 cm (2.1 - 3.5) Ascending Ao 2.9 cm (2.1 - 3.4) LA dimension (AP) 2D 3.6 cm (2.3 - 3.8) LAd ISD 4CH 5.9 cm (2.9 - 5.3) LA ISD 4CH W 4.5 cm (2.5 - 4.5) Name Value Normal Range LA ESV SP 4CH (A/L) 79 ml - LA ESV SP 2CH (A/L) 87 ml - LA ESV BP (A/L) 83 ml - LA ESV BP (A/L) index 49.7 ml/m2 - LA ESV SP 4CH (MOD) 70 ml - LA ESV SP 2CH (MOD) 85 ml - Name Value Normal Range MV E-wave Vmax 0.75 m/sec - MV deceleration time 270 msec - MV A-wave Vmax 1.1 m/sec - MV E:A ratio 0.67 ratio - LV septal e' Vmax 0.07 m/sec - LV lateral e' Vmax 0.06 m/sec - LV E:e' septal ratio 10.7 ratio - LV E:e' lateral ratio 12.5 ratio - Name Value Normal Range AV Vmax 1.8 m/sec - AV VTI 44.6 cm - AV peak gradient 13 mmHg - AV mean gradient 8 mmHg - LVOT diameter 1.9 cm - LVOT Vmax 0.96 m/sec - LVOT VTI 24.8 cm - LVOT peak gradient 4 mmHg - LVOT mean gradient 2 mmHg - DOI (VTI) 0.56 ratio - MATHEW (continuity Vmax) 1.6 cm2 - MATHEW (continuity VTI) 1.5 cm2 - Name Value Normal Range TR Vmax 4.1 m/sec - TR peak gradient 67 mmHg - RAP 8 mmHg - RVSP 75 mmHg - IVC diameter 2.2 cm - Name Value Normal Range PV Vmax 0.82 m/sec -
[2016-08-08] MEDS: cefTRIAXone VIAL(*) 1,000 MG in NS 0.9% 50 ML* 50 ML IVPB SCH (19:13)
[2016-08-08 23:32] LABS: Hematocrit 28 % (42-52); Hemoglobin 8.9 g/dl (14.0-18.0)
[2016-08-09 04:59] LABS: Hematocrit 27 % (42-52); Hemoglobin 8.7 g/dl (14.0-18.0); Mean Corpuscular HGB Conc 33 g/dl (31-36); Mean Corpuscular Hemoglobin 32 pg (27-31); Mean Corpuscular Volume 96 fL (80-94); Mean Platelet Volume 8 um3 (7.4-10.4); Red Blood Count 2.76 10^6/ul (4.0-5.4); Red Cell Distribution Width 17 % (10.5-15); White Blood Count 13.8 10^3/ul (3.5-10.8)
[2016-08-09 05:09] LABS: BUN/Creatinine Ratio 25.6 (8-20); Calcium 8.4 mg/dL (8.6-10.3); EGFR African American 43.5 (>60); EGFR Non-African American 33.8 (>60); Potassium 4.6 mmol/L (3.5-5.0)
[2016-08-09] MEDS: Mometasone/Formoter 100/5 MDI INH SCH ×2 (09:36→20:32)
[2016-08-09] MEDS: Amiodarone TAB* 200 MG PO SCH (09:55)
[2016-08-09] MEDS: Ferrous Sulfate TAB* 325 MG PO SCH (09:55)
[2016-08-09] MEDS: Diltiazem CD CAP* 120 MG PO SCH (09:55)
[2016-08-09] MEDS: Metoprolol Succinate XL TAB* 50 MG PO SCH (09:55)
[2016-08-09] MEDS: Apixaban* 2.5 MG TAB PO SCH (09:55)
--- NOTE | 2016-08-09 13:30 | PN ---
Subjective Date of Service: 08/09/16 Interval History: patient reports he feels much much better today. Less sob, cough is improving. Less SOB with exertion. No fevers or chills. reports good appetite. Denies any rectal bleeding or dark stools. Objective Active Medications: Albuterol/Ipratropium (Duoneb Neb.Celsa*) 1 neb INH Q4H PRN PRN Reason: SOB/WHEEZING Last Admin: 08/07/16 00:38 Dose: 1 neb Amiodarone HCl (Cordarone Tab*) 200 mg PO DAILY [facility] Last Admin: 08/09/16 09:55 Dose: 200 mg Apixaban (Eliquis) 2.5 mg PO BID [facility] Last Admin: 08/09/16 09:55 Dose: 2.5 mg Diltiazem HCl (Cardizem Cd Cap*) 120 mg PO DAILY [facility] Last Admin: 08/09/16 09:55 Dose: 120 mg Ferrous Sulfate (Ferrous Sulfate Tab*) 325 mg PO DAILY [facility] Last Admin: 08/09/16 09:55 Dose: 325 mg Ceftriaxone Sodium 1,000 mg/ (Sodium Chloride) 50 mls @ 200 mls/hr IVPB Q24H [facility] Last Admin: 08/08/16 19:13 Dose: 200 mls/hr Metoprolol Succinate (Toprol Xl Tab*) 50 mg PO DAILY [facility] Last Admin: 08/09/16 09:55 Dose: 50 mg Mometasone Furoate/Formoterol Fumar (Dulera 100/5 Mdi*) 2 puff INH BID [facility] Last Admin: 08/09/16 09:36 Dose: 2 puff Vital Signs 08/08/16 08/08/16 08/08/16 14:55 19:44 20:00 Temperature 96.4 F 97.2 F Pulse Rate 76 67 70 Respiratory 17 Rate Blood Pressure 134/64 122/54 (mmHg) O2 Sat by Pulse 69 93 Oximetry 08/08/16 08/09/16 08/09/16 23:44 00:24 03:33 Temperature 97.4 F 97.7 F Pulse Rate 66 66 70 Respiratory 16 20 Rate Blood Pressure 134/61 144/66 (mmHg) O2 Sat by Pulse 98 100 Oximetry 08/09/16 08/09/16 08/09/16 07:47 09:37 10:04 Temperature Pulse Rate 63 70 Respiratory 18 16 20 Rate Blood Pressure 137/72 (mmHg) O2 Sat by Pulse 98 98 Oximetry 08/09/16 11:09 Temperature Pulse Rate 92 Respiratory 18 Rate Blood Pressure 124/50 (mmHg) O2 Sat by Pulse 96 Oximetry Oxygen Devices in Use Now: Nasal Cannula - 3L NC Appearance: A+O x3 in NAD. very pleasent Eyes: No Scleral Icterus, PERRLA Ears/Nose/Mouth/Throat: NL Teeth, Lips, Gums, Mucous Membranes Moist Respiratory: Symmetrical Chest Expansion and Respiratory Effort, Clear to Auscultation Cardiovascular: NL Sounds; No Murmurs; No JVD, RRR, No Edema Abdominal: NL Sounds; No Tenderness; No Distention Extremities: No Edema, No Clubbing, Cyanosis Skin: No Rash or Ulcers, No Nodules or Sclerosis Neurological: Alert and Oriented x 3, NL Sensation, NL Gait, NL Muscle Strength and Tone Lines/Tubes/Other Access: Clean, Dry and Intact Peripheral IV Nutrition: Taking PO's Result Diagrams: 08/09/16 04:30 08/09/16 04:30 Microbiology and Other Data: Microbiology 08/07/16 10:30 Stool Occult Blood (INOCENCIA) - Final Stool Assess/Plan/Problems-Billing Assessment: 75 yo male with a PMH of not seeing any healthcare provider in 50+ years up until , afib on Eliquis, COPD on 3 L NC at baseline and smoking hx since age 12, CHF, and CKD who presented to the ED on 08/06 with c/o SOB. - Patient Problems (1) SOB (shortness of breath) Comment: - Clinically improving. Suspect a combination of mild CHF exacerbation and right upper lobe pneumonia - Mild leukocytosis. Afebrile. Recent hospitalization for COPD exacerbation with acute on chronic kidney failure and taken off lasix 3 weeks ago. - continues on home oxygen of 3l NC. - CT showing: probable right upper lobe pneumonia, moderate size pericardial effusion. - Last echo shows mod MR and EF 40-45% with moderate pericardial effusion - CRIST[facility] 2015. Repeat this admission TTE showing: mild , severe pulm HTN, moderate pericardial effusion with a noted small anterior to RV large loculated effusion is seen posterior to LV, no cardiac compromise. (spoke to Dr. Pradhan who is the pts primary Cards and states he will f/u as outpt) - 2016 Cath showed no significant CAD, mod to severe pulm HTN - Daily weights. - continue BB. - 60 mg IV lasix on admission - none since due to renal function. No need for lasix today, renal function improving, Dr. Pradhan aware his lasix was D/C'd. Continues lasix 2-3 xs a week at discharge, with close renal monitoring. - Monitor renal function (2) Afib Comment: - Continue home amiodarone, diltiazem, metoprolol. Hold Eliquis due to + stool for occult blood (3) Anemia Comment: - combination of iron deficiency and renal disease. concern for positive stool for occult blood on Eliqius. Plan to hold Eliquis and as GI to consult. No hx of colonoscopy. - started ferrous sulfate. - HH stable. Continue to trend. (4) COPD (chronic obstructive pulmonary disease) Comment: stable, no wheezing. Continue home INH and nebs (5) DVT prophylaxis Comment: Hold Eliquis. (6) Full code status Status and Disposition: inpatient with SOB thought to be secondary to pneumonia an dCHF, improving. Home when medically stable. Possibly tomorrow. Awaiting GI consult
[2016-08-09] MEDS: cefTRIAXone VIAL(*) 1,000 MG in NS 0.9% 50 ML* 50 ML IVPB SCH (17:59)
--- NOTE | 2016-08-09 23:19 | CONS ---
GASTROENTEROLOGY CONSULT: DATE: 08/09/16 CONSULTING PHYSICIANS: Concepción Martinez REASON FOR CONSULTATION: Falling hemoglobin over 6 months and heme-positive stool while taking apixaban for atrial fibrillation. HISTORY: This 75-year-old man, who had avoided all medical care as an adult until he presented in congestive failure with rapid ventricular response, atrial fibrillation, has been noted over the last few months to have a declining hemoglobin. He started out 03/28/16 with a hemoglobin of 15.1, MCV 98 and then gradually over time, it has kept going down and was 10.9 on and then 9.3 on presentation here 08/06/16. He states he has not had any overt bleeding, but further questioning revealed that since being on a blood thinner, he has been having nosebleeds fairly frequently. They generally stop within 5 minutes of stuffing tissue up his nose , but he says a couple of times, they have been fairly profuse and maybe his stool has been darker. Admittedly, multiple questions may have led him into that response as he had not brought up epistaxis spontaneously. He had previously said there were no black stools. He has not seen any rectal bleeding per se. He did relate the nosebleeds as being set off by eating. Again, they were not every day. He has not had any hematuria. Over the years, he denies any history of acid indigestion or heartburn or the use of any OTC remedies. His bowel habit has been regular. He has not had a colonoscopy. He does not take any aspirin or NSAIDs and seems to be reliable and consistent on that point. PAST MEDICAL HISTORY: 1. Long-standing smoker - quitting 2 years ago. 2. COPD - on home oxygen. 3. Congestive failure - BNP 1100 at initial presentation, 2015 and settling down somewhat to 573 three days ago. 4. Atrial fibrillation - it is notable that his rate has been consistently under 70 during this hospital stay. 5. Chronic renal disease. SOCIAL HISTORY: He lives with his in a trailer. 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 He has a daughter, Yuridia Awad ([phone]). REVIEW OF SYSTEMS: No history of CVA, TIA, seizure, syncope, IN, hemoptysis, TB , renal stone, hepatitis, alcohol abuse, lower rectal bleeding. He has no dietary restrictions. PHYSICAL EXAM: He is an older man, in bed, appearing comfortable, lying at just 10 to 15 degrees elevation, in no distress. HEENT exam is unremarkable. He has no icterus. Breath sounds are diminished but symmetric. He has no adenopathy. The abdomen is symmetric, soft without tenderness. Rectal shows no perianal abnormality, though a little bit of dried incontinence. Digital rectal shows heightened tone, but a rather narrow anal canal with a little bit of membrane restriction internally. There is a small amount of soft brown stool , submitted for Hemoccult. Extremities show no edema. IMPRESSION: This 75-year-old man with atrial fibrillation and significant COPD , after 5 months of apixaban treatment has developed an anemia with a mild iron deficiency pattern. He has had some nosebleeds persistently though it is difficult to be sure of their volume. Iron saturation is 9% (22/248) and his ferritin 155. His stool was initially heme positive but on repeat was negative. Rectal exams are quite difficult with a narrow canal. At this point, it certainly seems reasonable to do an upper endoscopy and then assess where things stand, especially vis-a-vis Hemoccult, erythropoietin, and his overall suitability for being able to tolerate a colonoscopy and therapeutic maneuvers that that may call into question. [id number]/[facility] #: [id number] KARI
[2016-08-10 06:07] LABS: Hematocrit 28 % (42-52); Hemoglobin 9.1 g/dl (14.0-18.0); Mean Corpuscular HGB Conc 32 g/dl (31-36); Mean Corpuscular Hemoglobin 31 pg (27-31); Mean Corpuscular Volume 97 fL (80-94); Mean Platelet Volume 9 um3 (7.4-10.4); Red Blood Count 2.91 10^6/ul (4.0-5.4); Red Cell Distribution Width 17 % (10.5-15); White Blood Count 11.6 10^3/ul (3.5-10.8)
[2016-08-10 06:25] LABS: BUN/Creatinine Ratio 26.9 (8-20); Calcium 8.4 mg/dL (8.6-10.3); EGFR African American 49.2 (>60); EGFR Non-African American 38.3 (>60); Potassium 4.5 mmol/L (3.5-5.0)
[2016-08-10] MEDS: Mometasone/Formoter 100/5 MDI INH SCH ×2 (08:09→19:39)
[2016-08-10] MEDS ORDERED: Meperidine SYRINGE* 50 MG/ML ONE (08:37)
[2016-08-10] MEDS ORDERED: Midazolam* 1 MG/ML 10 ML VIAL (10 MG) ONE (08:37)
[2016-08-10] MEDS: Metoprolol Succinate XL TAB* 50 MG PO SCH (10:06)
[2016-08-10] MEDS: Amiodarone TAB* 200 MG PO SCH (10:06)
[2016-08-10] MEDS: Diltiazem CD CAP* 120 MG PO SCH (10:06)
[2016-08-10] MEDS: Ferrous Sulfate TAB* 325 MG PO SCH (10:06)
--- NOTE | 2016-08-10 11:26 | PN ---
Subjective Date of Service: 08/10/16 Interval History: Patient seen and examined at bedside. Pt denies fever, chills, shortness of breath, chest discomfort, N/V/D. GI recommends that Pt stays and has a colonoscopy in the morning. Pt is agreeable to this. Tele: Sinus rhythm - sinus estella, rate 40-70's. Family History: Unchanged from Admission Social History: Unchanged from Admission Past Medical History: Unchanged from Admission Objective Active Medications: Albuterol/Ipratropium (Duoneb Neb.Celsa*) 1 neb INH Q4H PRN Reason: SOB/WHEEZING Amiodarone HCl (Cordarone Tab*) 200 mg PO DAILY NESS Diltiazem HCl (Cardizem Cd Cap*) 120 mg PO DAILY NESS Ferrous Sulfate (Ferrous Sulfate Tab*) 325 mg PO DAILY NESS Ceftriaxone Sodium 1,000 mg/ (Sodium Chloride) 50 mls @ 200 mls/hr IVPB Q24H NESS Metoprolol Succinate (Toprol Xl Tab*) 50 mg PO DAILY NESS Mometasone Furoate/Formoterol Fumar (Dulera 100/5 Mdi*) 2 puff INH BID NESS Vital Signs 08/09/16 08/09/16 08/09/16 15:11 19:35 20:00 Temperature 97.2 F Pulse Rate 63 68 Respiratory 18 19 19 Rate Blood Pressure 108/59 141/66 (mmHg) O2 Sat by Pulse 94 91 Oximetry 08/09/16 08/09/16 08/10/16 20:37 23:42 03:51 Temperature 98.2 F Pulse Rate 77 79 Respiratory 20 16 Rate Blood Pressure 142/64 160/68 (mmHg) O2 Sat by Pulse 94 96 Oximetry 08/10/16 08/10/16 08/10/16 07:37 07:40 07:41 Temperature 99.0 F Pulse Rate 75 Respiratory 18 20 Rate Blood Pressure 154/61 (mmHg) O2 Sat by Pulse 88 92 Oximetry 08/10/16 10:11 Temperature 97.3 F Pulse Rate 65 Respiratory 16 Rate Blood Pressure 147/62 (mmHg) O2 Sat by Pulse 93 Oximetry Oxygen Devices in Use Now: Nasal Cannula - 3L Appearance: NAD, laying in bed Eyes: No Scleral Icterus, PERRLA Ears/Nose/Mouth/Throat: NL Teeth, Lips, Gums, Mucous Membranes Moist Neck: NL Appearance and Movements; NL JVP, Trachea Midline Respiratory: Symmetrical Chest Expansion and Respiratory Effort, - - Lung sounds with rhonchi bilateral Cardiovascular: NL Sounds; No Murmurs; No JVD, RRR Abdominal: NL Sounds; No Tenderness; No Distention Extremities: No Edema Skin: No Rash or Ulcers Neurological: Alert and Oriented x 3, NL Muscle Strength and Tone Lines/Tubes/Other Access: Clean, Dry and Intact Peripheral IV - site benign Nutrition: Taking PO's Result Diagrams: 08/10/16 05:41 08/10/16 05:41 Microbiology and Other Data: Microbiology 08/07/16 10:30 Stool Occult Blood (INOCENCIA) - Final Stool Assess/Plan/Problems-Billing Assessment: Mr. Jay is a 75 yo male with a PMH of not seeing any healthcare provider in 50+ years up until , afib on Eliquis, COPD on 3 L NC at baseline and smoking hx since age 12, CHF, and CKD who presented to the ED on 08/06 with c/o SOB. - Patient Problems (1) SOB (shortness of breath) Code(s): R06.02 - SHORTNESS OF BREATH SNOMED Code(s): 315388529 Comment: - Clinically improving. Suspect a combination of mild CHF exacerbation and right upper lobe PNA. - Mild leukocytosis, afebrile. - Recently hospitalized for COPD exacerbation with acute on chronic kidney failure (was taken off lasix) - Continues on home oxygen of 3L via [place] - CT shows: probable right upper lobe pneumonia, moderate size pericardial effusion - Echo - mild , severe pulm HTN, moderate pericardial effusion with a noted small anterior to RV large occulated eddusion. Dr. Pradhan will follow up as an outpatient. - Monitor renal function - Will discharge home on lasix 2-3 times per week (2) Anemia Code(s): D64.9 - ANEMIA, UNSPECIFIED SNOMED Code(s): 818032685 Comment: - Combination of iron deficiency and renal disease. Concern for positive stool for occult blood on Eliqius. Plan to hold Eliquis and GI to consult. No hx of colonoscopy. - Repeat stool for occult blood negative. - Started ferrous sulfate. - HH stable. Continue to trend. - Will have a colonoscopy in AM (3) Afib Code(s): I48.91 - UNSPECIFIED ATRIAL FIBRILLATION SNOMED Code(s): 14847061 Comment: - Continue home amiodarone, diltiazem, metoprolol. - Hold Eliquis due to + stool for occult blood (4) COPD (chronic obstructive pulmonary disease) Code(s): J44.9 - CHRONIC OBSTRUCTIVE PULMONARY DISEASE, UNSPECIFIED SNOMED Code(s): 94751256 Comment: - Stable, no wheezing. - Continue home INH and nebs (5) CKD (chronic kidney disease) Code(s): N18.9 - CHRONIC KIDNEY DISEASE, UNSPECIFIED SNOMED Code(s): 252816436 Comment: - Continue to hold lasix for now (6) Chronic systolic CHF (congestive heart failure) Code(s): I50.22 - CHRONIC SYSTOLIC (CONGESTIVE) HEART FAILURE SNOMED Code(s): 378580348 Comment: - Continue home beta-neville - Will plan to resume Lasix on discharge, 2-3 times a week - Follow-up with Dr. Pradhan as an outpatient (7) DVT prophylaxis Code(s): EDO0452 - SNOMED Code(s): 622484438 Comment: - Hold Eliquis d/t possible GI bleed (8) Full code status Code(s): Z78.9 - OTHER SPECIFIED HEALTH STATUS SNOMED Code(s): 292342449 Status and Disposition: Inpatient with SOB thought to be secondary to pneumonia and CHF, improving. Home when medically stable, possibly tomorrow after colonoscopy.
[2016-08-10] MEDS ORDERED: PEG 3000 GI LAVAGE* 1 GALLON PO ONE ×2 (14:00→15:06)
[2016-08-10] MEDS: cefTRIAXone VIAL(*) 1,000 MG in NS 0.9% 50 ML* 50 ML IVPB SCH (17:26)
--- NOTE | 2016-08-10 22:45 | PRO ---
DATE: 08/10/16 - ROOM #446 REFERRING PHYSICIAN: Dr. Jd Delgado.* PROCEDURE: Upper gastrointestinal endoscopy and biopsy of duodenal irregular folds, third portion. 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 His hemoglobin has gone from 15 down to 9. He is mildly iron deficient. Erythropoietin level is pending. His BNP is still elevated in the 500s, having been 1100 in February 2016 when he presented short of breath and in atrial fibrillation. Initial Hemoccult 3 days ago started this admission was positive and then yesterday negative. He has also complained of weight loss upwards of 40 pounds. ENDOSCOPIST: Dr. Chong. MEDICATIONS: Midazolam 3, meperidine 37.5. FINDINGS: He is an elderly man, chronically ill, wearing oxygen, in no distress at this time. EGD: Larynx - symmetric limited views. Esophagus - easily entered and the mucosa is normal in the upper mid and lower esophagus with the EG junction at 40 without any scarring or chronic changes. There is no hiatal hernia. Stomach - generally normal mucosa in the cardia, fundus, body, and antrum. The rugal folds are normal and there are no erosions. Duodenum - the pylorus and proximal bulb are normal. In the distal bulb, there are minimally erythematous, smooth, prominent bulge or nodules consistent with Gogo's glands. Turning into the second and then third portion of the duodenum, there is a subtle nodularity. Biopsies are taken. On slow withdrawal , there are no additional findings. IMPRESSION: 1. Duodenal nodules - biopsy is pending and no heparin for 48 hours Addendum: nodular Gogo's glands 2. Otherwise normal upper endoscopy. 3. Anemia - evaluation ongoing which will include erythropoietin, further Hemoccult, and consideration of his cardiopulmonary risk. [id number]/[facility] #: [id number] [facility]
[2016-08-11 06:18] LABS: Hematocrit 27 % (42-52); Hemoglobin 8.8 g/dl (14.0-18.0); Mean Corpuscular HGB Conc 33 g/dl (31-36); Mean Corpuscular Hemoglobin 32 pg (27-31); Mean Corpuscular Volume 97 fL (80-94); Mean Platelet Volume 8 um3 (7.4-10.4); Red Blood Count 2.78 10^6/ul (4.0-5.4); Red Cell Distribution Width 17 % (10.5-15); White Blood Count 9.5 10^3/ul (3.5-10.8)
[2016-08-11 06:49] LABS: BUN/Creatinine Ratio 21.4 (8-20); Calcium 7.9 mg/dL (8.6-10.3); EGFR African American 68.8 (>60); EGFR Non-African American 53.5 (>60); Potassium 3.7 mmol/L (3.5-5.0)
[2016-08-11] MEDS: Mometasone/Formoter 100/5 MDI INH SCH ×2 (09:12→20:15)
[2016-08-11] MEDS ORDERED: Meperidine SYRINGE* 50 MG/ML ONE (10:06)
[2016-08-11] MEDS ORDERED: Midazolam* 1 MG/ML 10 ML VIAL (10 MG) ONE (10:06)
[2016-08-11] MEDS: Diltiazem CD CAP* 120 MG PO SCH (13:18)
[2016-08-11] MEDS: Metoprolol Succinate XL TAB* 50 MG PO SCH (13:18)
[2016-08-11] MEDS: Ferrous Sulfate TAB* 325 MG PO SCH (13:18)
[2016-08-11] MEDS: Amiodarone TAB* 200 MG PO SCH (13:18)
--- NOTE | 2016-08-11 16:10 | PN ---
Subjective Date of Service: 08/11/16 Interval History: Patient seen and examined at bedside. Pt states that he is feeling fine after his procedure. Denies fever, chills, lightheadedness or dizziness, shortness of breath, chest discomfort, N/V/D. Pt is reporting an intermittent moist cough today. Pt has had hypotension intermittently since his colonoscopy earlier today. Pt has also been noted to have intermittent low O2 sats in the 80's, and Pt has had his O2 increased since his procedure from 3L via NC to 4L via NC. Tele: Sinus rhythm with 1st degree block, rate 60-70's. Family History: Unchanged from Admission Social History: Unchanged from Admission Past Medical History: Unchanged from Admission Objective Active Medications: Albuterol/Ipratropium (Duoneb Neb.Celsa*) 1 neb INH Q4H PRN Reason: SOB/WHEEZING Amiodarone HCl (Cordarone Tab*) 200 mg PO DAILY NESS Diltiazem HCl (Cardizem Cd Cap*) 120 mg PO DAILY NESS Ferrous Sulfate (Ferrous Sulfate Tab*) 325 mg PO DAILY NESS Ceftriaxone Sodium 1,000 mg/ (Sodium Chloride) 50 mls @ 200 mls/hr IVPB Q24H NESS Metoprolol Succinate (Toprol Xl Tab*) 50 mg PO DAILY NESS Mometasone Furoate/Formoterol Fumar (Dulera 100/5 Mdi*) 2 puff INH BID NESS Vital Signs 08/10/16 08/10/16 08/10/16 19:35 20:00 22:15 Temperature 97.8 F Pulse Rate 62 Respiratory 18 18 Rate Blood Pressure 103/80 (mmHg) O2 Sat by Pulse 96 Oximetry 08/10/16 08/11/16 08/11/16 23:44 03:40 07:35 Temperature 97.4 F 97.3 F Pulse Rate 75 66 75 Respiratory 16 16 18 Rate Blood Pressure 150/66 150/64 132/66 (mmHg) O2 Sat by Pulse 93 93 90 Oximetry 08/11/16 08/11/16 08/11/16 08:00 09:16 12:59 Temperature 97.4 F Pulse Rate 72 67 Respiratory 18 16 18 Rate Blood Pressure 137/64 (mmHg) O2 Sat by Pulse 92 89 Oximetry 08/11/16 08/11/16 14:05 14:33 Temperature Pulse Rate 79 Respiratory 18 Rate Blood Pressure 96/44 92/51 (mmHg) O2 Sat by Pulse 91 Oximetry Oxygen Devices in Use Now: Nasal Cannula - 4L Appearance: NAD, sitting up in bed Eyes: No Scleral Icterus, PERRLA Ears/Nose/Mouth/Throat: NL Teeth, Lips, Gums, Mucous Membranes Moist Neck: NL Appearance and Movements; NL JVP, Trachea Midline Respiratory: Symmetrical Chest Expansion and Respiratory Effort, - - Crackles throughout, that decreased to the bases after a cough Cardiovascular: NL Sounds; No Murmurs; No JVD, RRR Abdominal: NL Sounds; No Tenderness; No Distention Extremities: No Edema Skin: No Rash or Ulcers Neurological: Alert and Oriented x 3, NL Muscle Strength and Tone Lines/Tubes/Other Access: Clean, Dry and Intact Peripheral IV - x2, sites benign Nutrition: Taking PO's Result Diagrams: 08/11/16 05:34 08/11/16 05:34 Microbiology and Other Data: Microbiology 08/07/16 10:30 Stool Occult Blood (INOCENCIA) - Final Stool Assess/Plan/Problems-Billing Assessment: Mr. Jay is a 75 yo male with a PMH of not seeing any healthcare provider in 50+ years up until , afib on Eliquis, COPD on 3 L NC at baseline and smoking hx since age 12, CHF, and CKD who presented to the ED on 08/06 with c/o SOB. - Patient Problems (1) SOB (shortness of breath) Code(s): R06.02 - SHORTNESS OF BREATH SNOMED Code(s): 426965307 Comment: - Clinically improving. Suspect a combination of mild CHF exacerbation and right upper lobe PNA. - Leukocytosis resolved, afebrile. - Recently hospitalized for COPD exacerbation with acute on chronic kidney failure (was taken off lasix) - Requiring increased O2 today after IVFs for procedure, on home oxygen of 3L via [place] - CT shows: probable right upper lobe pneumonia, moderate size pericardial effusion - Echo - mild , severe pulm HTN, moderate pericardial effusion with a noted small anterior to RV large occulated eddusion. Dr. Pradhan will follow up as an outpatient. - Will check chest xray now (2) Anemia Code(s): D64.9 - ANEMIA, UNSPECIFIED SNOMED Code(s): 105041133 Comment: - Combination of iron deficiency and renal disease. Concern for positive stool for occult blood on Eliqius. Plan to hold Eliquis and GI to consult. No hx of colonoscopy. - Repeat stool for occult blood negative. - Started ferrous sulfate. - HH stable. Continue to trend. - Colonoscopy - found 6 polyps that were removed, path pending. (3) Afib Code(s): I48.91 - UNSPECIFIED ATRIAL FIBRILLATION SNOMED Code(s): 66588082 Comment: - Continue home amiodarone, diltiazem, metoprolol. - Hold Eliquis due to + stool for occult blood (4) COPD (chronic obstructive pulmonary disease) Code(s): J44.9 - CHRONIC OBSTRUCTIVE PULMONARY DISEASE, UNSPECIFIED SNOMED Code(s): 15986811 Comment: - Stable, no wheezing. - Continue home INH and nebs (5) CKD (chronic kidney disease) Code(s): N18.9 - CHRONIC KIDNEY DISEASE, UNSPECIFIED SNOMED Code(s): 268988205 Comment: - Continue to hold lasix for now (6) Chronic systolic CHF (congestive heart failure) Code(s): I50.22 - CHRONIC SYSTOLIC (CONGESTIVE) HEART FAILURE SNOMED Code(s): 922851474 Comment: - Continue home beta-neville - Will plan to resume Lasix on discharge, 2-3 times a week - Follow-up with Dr. Pradhan as an outpatient - Lung sounds with crackles this afternoon, will check a chest xray (7) DVT prophylaxis Code(s): [id number] - SNOMED Code(s): 057454989 Comment: - Hold Eliquis d/t possible GI bleed (8) Full code status Code(s): Z78.9 - OTHER SPECIFIED HEALTH STATUS SNOMED Code(s): 793491654 Status and Disposition: Inpatient with SOB thought to be secondary to pneumonia and CHF, improving. Home when medically stable, possibly in 1-2 days.
[2016-08-11] MEDS: Albuterol/Ipratropium NEB.SOL* Albuterol 2.5 MG/Ipratropium 0.5 MG 3 ML INH PRN (16:27)
--- NOTE | 2016-08-11 18:10 | RAD ---
INDICATION: Increased oxygen needs, crackles. COMPARISON: Comparison is made with a prior chest x-ray study from August 08, 2016. TECHNIQUE: A portable view of the chest was obtained. FINDINGS: The heart is enlarged and unchanged from the prior exam. There is a patchy infiltrate present in the right midlung field and at the right lung base which have progressed from the prior exam. IMPRESSION: RIGHT LUNG INFILTRATES DEMONSTRATING INTERVAL PROGRESSION.
[2016-08-11] MEDS: cefTRIAXone VIAL(*) 1,000 MG in NS 0.9% 50 ML* 50 ML IVPB SCH (18:35)
[2016-08-11] MEDS ORDERED: Azithromycin TAB* 250 MG PO ONE (19:38)
[2016-08-12 06:26] LABS: Add Diff/Slide Review? Slide Review Added; Comments Flag Yes; Hematocrit 25 % (42-52); Hemoglobin 8.3 g/dl (14.0-18.0); Mean Corpuscular HGB Conc 33 g/dl (31-36); Mean Corpuscular Hemoglobin 32 pg (27-31); Mean Corpuscular Volume 97 fL (80-94); Mean Platelet Volume 8 um3 (7.4-10.4); Red Blood Count 2.61 10^6/ul (4.0-5.4); Red Cell Distribution Width 18 % (10.5-15); White Blood Count 9.5 10^3/ul (3.5-10.8)
[2016-08-12 06:37] LABS: BUN/Creatinine Ratio 15.6 (8-20); EGFR African American 63.2 (>60); EGFR Non-African American 49.1 (>60); Potassium 3.6 mmol/L (3.5-5.0)
[2016-08-12] MEDS: Amiodarone TAB* 200 MG PO SCH (08:30)
[2016-08-12] MEDS: Diltiazem CD CAP* 120 MG PO SCH (08:30)
[2016-08-12] MEDS: Metoprolol Succinate XL TAB* 50 MG PO SCH (08:30)
[2016-08-12] MEDS: Ferrous Sulfate TAB* 325 MG PO SCH (08:31)
[2016-08-12] MEDS: Mometasone/Formoter 100/5 MDI INH SCH (08:31)
--- NOTE | 2016-08-12 13:55 | PN ---
Subjective Date of Service: 08/12/16 Interval History: Patient seen and examined at bedside. Pt reports that he is feeling well and is anxious to get home. Denies fever, chills, shortness of breath above his baseline, chest discomfort, N/V/D. Pt states that he has been walking to the bathroom. Reports occasional cough. Tele: Sinus rhythm with 1 degree block, rate 60's. Family History: Unchanged from Admission Social History: Unchanged from Admission Past Medical History: Unchanged from Admission Objective Active Medications: Albuterol/Ipratropium (Duoneb Neb.Celsa*) 1 neb INH Q4H PRN Reason: SOB/WHEEZING Amiodarone HCl (Cordarone Tab*) 200 mg PO DAILY NESS Azithromycin (Zithromax Tab*) 250 mg PO DAILY NESS Diltiazem HCl (Cardizem Cd Cap*) 120 mg PO DAILY NESS Ferrous Sulfate (Ferrous Sulfate Tab*) 325 mg PO DAILY NESS Ceftriaxone Sodium 1,000 mg/ (Sodium Chloride) 50 mls @ 200 mls/hr IVPB Q24H NESS Metoprolol Succinate (Toprol Xl Tab*) 50 mg PO DAILY NESS Mometasone Furoate/Formoterol Fumar (Dulera 100/5 Mdi*) 2 puff INH BID NESS Vital Signs 08/11/16 08/11/16 08/11/16 14:05 14:33 15:05 Temperature Pulse Rate 79 Respiratory 18 12 Rate Blood Pressure 96/44 92/51 103/49 (mmHg) O2 Sat by Pulse 91 93 Oximetry 08/11/16 08/11/16 08/11/16 15:28 16:00 16:18 Temperature Pulse Rate 70 Respiratory Rate Blood Pressure 77/40 121/53 121/59 (mmHg) O2 Sat by Pulse 94 82 Oximetry 08/11/16 08/11/16 08/11/16 17:02 18:18 19:19 Temperature 97.4 F Pulse Rate 67 64 Respiratory 16 Rate Blood Pressure 87/49 114/55 (mmHg) O2 Sat by Pulse 91 93 Oximetry 08/11/16 08/11/16 08/11/16 20:00 21:32 21:33 Temperature Pulse Rate 67 Respiratory 16 16 Rate Blood Pressure (mmHg) O2 Sat by Pulse 91 91 Oximetry 08/11/16 08/12/16 08/12/16 23:23 02:56 04:36 Temperature 98.1 F 98.0 F Pulse Rate 74 79 Respiratory 18 Rate Blood Pressure 139/61 124/60 (mmHg) O2 Sat by Pulse 93 91 93 Oximetry 08/12/16 08/12/16 08/12/16 07:51 08:00 08:34 Temperature 97.7 F Pulse Rate 70 Respiratory 16 18 18 Rate Blood Pressure 144/65 (mmHg) O2 Sat by Pulse 93 Oximetry Oxygen Devices in Use Now: Nasal Cannula - 4L Appearance: NAD, sitting up in bed Eyes: No Scleral Icterus, PERRLA Neck: NL Appearance and Movements; NL JVP, Trachea Midline Respiratory: Symmetrical Chest Expansion and Respiratory Effort, - - Lung sounds clear, diminished with fine crackles in the bases Cardiovascular: NL Sounds; No Murmurs; No JVD, RRR Abdominal: NL Sounds; No Tenderness; No Distention Extremities: No Edema Skin: No Rash or Ulcers Neurological: Alert and Oriented x 3, NL Muscle Strength and Tone Lines/Tubes/Other Access: Clean, Dry and Intact Peripheral IV - site benign Nutrition: Taking PO's Result Diagrams: 08/12/16 05:19 08/12/16 05:19 Microbiology and Other Data: Microbiology 08/07/16 10:30 Stool Occult Blood (INOCENCIA) - Final Stool Assess/Plan/Problems-Billing Assessment: Mr. Jay is a 75 yo male with a PMH of not seeing any healthcare provider in 50+ years up until , afib on Eliquis, COPD on 3 L NC at baseline and smoking hx since age 12, CHF, and CKD who presented to the ED on 08/06 with c/o SOB. - Patient Problems (1) SOB (shortness of breath) Code(s): R06.02 - SHORTNESS OF BREATH SNOMED Code(s): 575720397 Comment: - Clinically improving. Suspect a combination of mild CHF exacerbation and right upper lobe PNA. - Leukocytosis resolved, afebrile. - Recently hospitalized for COPD exacerbation with acute on chronic kidney failure (was taken off lasix) - Requiring increased O2 yesterday after IVFs for procedure, on home oxygen of 3L via [place] - CT shows: probable right upper lobe pneumonia, moderate size pericardial effusion - Echo - mild , severe pulm HTN, moderate pericardial effusion with a noted small anterior to RV large occulated eddusion. Dr. Pradhan will follow up as an outpatient. - Chest xray 08/11 with right lung infiltrate progression (2) PNA (pneumonia) Code(s): J18.9 - PNEUMONIA, UNSPECIFIED ORGANISM SNOMED Code(s): 138765274 Comment: - Increase in infiltrate on chest xray yesterday - Will discharge home on PO abx (3) Anemia Code(s): D64.9 - ANEMIA, UNSPECIFIED SNOMED Code(s): 297992117 Comment: - Combination of iron deficiency and renal disease. Concern for positive stool for occult blood on Eliqius. No hx of colonoscopy. - Repeat stool for occult blood negative. - Started ferrous sulfate. - HH stable. Continue to trend. - Colonoscopy - found 6 polyps that were removed, path pending. - Continue to hold Eliquis until seen by GI in follow up (4) Afib Code(s): I48.91 - UNSPECIFIED ATRIAL FIBRILLATION SNOMED Code(s): 57951494 Comment: - Continue home amiodarone, diltiazem, metoprolol. - Hold Eliquis until GI follow up (5) COPD (chronic obstructive pulmonary disease) Code(s): J44.9 - CHRONIC OBSTRUCTIVE PULMONARY DISEASE, UNSPECIFIED SNOMED Code(s): 69879828 Comment: - Stable, no wheezing. - Continue home INH and nebs - O2 sat 96% on 3L via [place] - Pt with mild hypoxemia due to combination COPD and CHF. Chronic respiratory failure (6) CKD (chronic kidney disease) Code(s): N18.9 - CHRONIC KIDNEY DISEASE, UNSPECIFIED SNOMED Code(s): 783988100 Comment: - Resume lasix twice weekly, will need to be monitored closely outpatient (7) Chronic systolic CHF (congestive heart failure) Code(s): I50.22 - CHRONIC SYSTOLIC (CONGESTIVE) HEART FAILURE SNOMED Code(s): 645554618 Comment: - Continue home beta-neville - Will plan to resume Lasix on discharge, 2 times a week - Follow-up with Dr. Pradhan as an outpatient - Lung sounds with crackles in the bases (8) DVT prophylaxis Code(s): LKD5266 - SNOMED Code(s): 806432048 Comment: - Hold Eliquis d/t possible GI bleed (9) Full code status Code(s): Z78.9 - OTHER SPECIFIED HEALTH STATUS SNOMED Code(s): 298514970 Status and Disposition: Inpatient with SOB thought to be secondary to pneumonia and CHF, improving. Discharge to home today.
[2016-08-12 14:46] VITALS: BP 116/42
[2016-08-12] MEDS ORDERED: Azithromycin TAB* 250 MG PO SCH (20:00)
--- NOTE | 2016-08-13 09:32 | DS ---
DISCHARGE SUMMARY: DATE OF ADMISSION: 08/06/16 DATE OF DISCHARGE: 08/12/16 ATTENDING PHYSICIAN: Dr. Rocky Dubois* (dictated by Hailee Torres NP). PRIMARY CARE PROVIDER: Dr. Jd Delgado. PRIMARY DIAGNOSES: 1. Systolic congestive heart failure. 2. Pneumonia. 3. Possible gastrointestinal bleed. 4. Colon polyps. 5. Anemia, combination iron deficiency and anemia of chronic disease. SECONDARY DIAGNOSES: 1. Atrial fibrillation. 2. Chronic obstructive pulmonary disease. 3. Chronic kidney disease. CONSULTATIONS WHILE IN THE HOSPITAL: Dr. Shabbir Chong with Gastroenterology. PROCEDURES WHILE IN THE HOSPITAL: 1. An upper gastrointestinal endoscopy with biopsy on August [address] Shabbir Chong. Impression: Duodenal nodules, biopsy pending. Otherwise, normal upper endoscopy. 2. Colonoscopy with Dr. Shabbir Chong on 08/11/16. Findings: Six colon polyps. STUDIES WHILE IN THE HOSPITAL: 1. Chest x-ray on 08/06/16. Radiologist's impression: The consolidation of findings is most suggestive of mild pulmonary vascular congestion and interstitial edema superimposed on chronic obstructive pulmonary disease. Correlate with clinical assessment as bronchopneumonia could have a similar appearance. 2. Chest x-ray on 08/08/16. Radiologist's impression: Emphysematous changes. Right upper lobe infiltrate is improved. Right basilar infiltrate also appears to be improved compared to prior exam. 3. Transthoracic echocardiogram on 08/08/16. Junior Architect's conclusion: Mild- to- moderate concentric left ventricular hypertrophy is observed. Global left ventricular wall motion and contractility are within normal limits. The estimated ejection fraction is 50% to 55%. There is septal flattening of the interventricular septum consistent with left ventricular volume or pressure overload. The left ventricular global systolic function is mildly to moderately reduced. The right atrium is moderately dilated. There is a trace of aortic regurgitation, aortic valve leaflets are mildly thickened. There is mild aortic stenosis, mild mitral regurgitation. There is no evidence of mitral stenosis. There is [id number] tricuspid regurgitation. There is evidence of severe pulmonary hypertension. There is moderate pericardial effusion. It is small anterior to RV, but a large loculated effusion is seen posterior to LV. There are no signs of significant hypodynamic compromise. There is no dilation of the ascending aorta. Compared to study from 03/29/16, LV function is better now, in normal sinus rhythm, the pericardial effusion is slightly larger, but still no hemodynamic effect. The pulmonary hypertension is worse. 4. Chest CT on 08/08/16. Radiologist's impression: Emphysematous changes with hamilton are noted with likely reactive cysts and probable pneumonia in the right upper lobe posteriorly. Probable atelectasis and/or scarring is noted in the right lower lobe, small pleural effusions are noted. There is a moderate- sized pericardial effusion noted. 5. Chest x-ray on 08/11/16. Radiologist's conclusion: Right lung infiltrate demonstrates interval progression. MEDICATIONS ON DISCHARGE: New home medications: 1. Ferrous sulfate 325 mg oral daily. 2. Azithromycin 250 mg oral daily for 4 days. 3. Cefdinir 300 mg oral twice daily for 7 days. 4. Furosemide 20 mg oral twice weekly. Continued home medications: 1. Amiodarone 200 mg oral daily. 2. Diltiazem CD 120 mg p.o. oral daily. 3. Metoprolol succinate XL 50 mg oral daily. 4. Dulera 100/5 two puffs inhalation twice daily. 5. Budesonide 1 mg inhalation twice daily. 6. DuoNeb 1 nebulized inhalation every 4 hours as needed for shortness of breath. Discontinued home medications: 1. Eliquis. HISTORY OF PRESENT ILLNESS/HOSPITAL COURSE: Mr. Jay is a 75-year-old male with past medical history significant for atrial fibrillation, on Eliquis; COPD ; congestive heart failure; chronic kidney disease, who presented to the hospital with concerns for shortness of breath. The patient was discharged from the hospital on July 23 after being treated for COPD exacerbation. The patient had been feeling well, but over the last 3 weeks since his discharge , suddenly he became more short of breath. He specifically noted that his shortness of breath and dyspnea were with exertion. The patient was able to walk from his chair to the bathroom and into the kitchen without difficulty, but was having a hard time getting back to his chair and was becoming diaphoretic and out of breath. The patient denied any worsening cough, fevers, or chest discomfort. He denied any lower extremity edema. The patient reports sleeping in a chair since the fall. Initially, at the end of the patient's hospitalization in June, he was taken off his 20 mg daily Lasix due to concern for worsening chronic kidney disease. The patient presented to the emergency room for further evaluation of his shortness of breath. While in the emergency room, the patient had a chest x-ray showing a pulmonary vascular congestion, which appeared worse than previous. There was no evidence of pneumonia. The patient was afebrile. He had no leukocytosis. The patient had a BUN and creatinine that were better than they had been in the past. The patient was noted to be anemic though this was not new. His hemoglobin was 9.3 , but it is worse when compared to his previous admission. The patient denied any signs of bleeding or bloody or dark stools. Hospitalists were asked to evaluate the patient for admission. While in the hospital, the patient's shortness of breath was initially suspected to be related to the patient's systolic congestive heart failure. Based off his presenting chest x-ray, his furosemide has been held for the past 3 weeks. The patient was given a dose of Lasix in the evening of his admission. The patient had a transthoracic echocardiogram showing an EF of 50% to 55%. Vwon-lt-[id number] concentric left ventricular hypertrophy. A septal wall flattening consistent with right ventricular volume or pressure overload. When compared to previous study, the patient's LV function was improved. His pericardial effusion was slightly larger and pulmonary hypertension was worse. The patient had a repeat chest x-ray 2 days after his admission, showing emphysematous changes with a probable pneumonia in the right upper lobe posterior. The patient had a chest CT on the same day showing emphysematous changes with probable pneumonia in the right upper lobe. The patient was started on ceftriaxone for his suspected pneumonia. After the patient received his dose of Lasix, his kidney function actually worsened and further Lasix was held. During the patient's stay, his creatinine had improved closer towards his baseline with 1.41 on the day of discharge. During the patient's stay, his hemoglobin and hematocrit had remained stable. He underwent an upper endoscopy with Dr. Chong after consultation on August 10 with no significant findings. He did have a biopsy of his duodenum showing a benign duodenal mucosa with nodular Gogo's gland. Due to concern after the patient had one positive guaiac for stool and then on repeat negative guaiac for stool, the patient underwent a colonoscopy, in which 6 colon polyps were found and removed. The final pathology report has now come back on those showing 4 areas with tubular adenoma in the transverse colon, descending colon, distal transverse colon, and the splenic flexure of the colon. The patient also had a rectosigmoid colon biopsy showing a hyperplastic polyp in addition to a rectal polyp at 5 cm that was also hyperplastic. The patient was also noted to have left colon diverticulosis. Due to the patient's anemia of chronic disease and iron deficiency anemia, he was started on ferrous sulfate daily. The patient's weight has remained relatively stable around 132 pounds during his stay. The patient reports that he is urinating without difficulty. The patient reports being able to get up and ambulate to the bathroom with oxygen at 3 L via nasal cannula and reports his breathing is at baseline and is requiring home O2 amounts. It is also noted that following the patient's procedure on August 11 , he developed increased crackles and he had had some hypotension and received IV fluids after the procedure. The patient had a repeat chest x-ray showing an increase in his right lobe infiltrate and azithromycin was added to the patient' s antibiotic regimen. The patient has remained afebrile, has had resolution of his leukocytosis. Mr. Jay is improved and ready for discharge to home today. Vital signs are as follows: Temperature 97.4, heart rate 77, respiratory rate 16, O2 sat 90% to 96% on 3 L via nasal cannula, blood pressure 116/42. DISCHARGE PLAN: Mr. Jay will be discharged home. ACTIVITY: As tolerated. DIET: He should be on a heart-healthy, low-sodium diet. 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 In regards to his atrial fibrillation, he will be continued on his home amiodarone and metoprolol. His Eliquis will be held until he follows up with Dr. Chong. For the patient's CHF, he will be restarted on furosemide 20 mg oral twice weekly. It has been suggested the patient take it on Monday and Monday or Monday and . He has been encouraged to monitor his weights daily and to follow a low sodium diet. The patient will be seen in followup by his fiberglass laminator, Dr. Pradhan. He has an appointment on August 26 at 2:30 p.m. As far as the patient's anemia, he will be continued on ferrous sulfate. His H and H is currently stable. As far as the patient's colon polyps and findings of tubular adenoma, the patient will be seen in followup with Dr. Shabbir Chong. He has an appointment on August 24 at 3:45 p.m. In terms of his pneumonia, he will continue on azithromycin for 4 more days to complete a 5-day course in addition to cefdinir to complete 300 mg twice daily for 7 days to complete a 10-day course of cephalosporins. As far as the patient's chronic respiratory failure and hypoxia, it is suspected this is in combination to his CHF and COPD. He will be continued on his home oxygen of 3 L via nasal cannula. The patient has been instructed to return to the emergency room for changes in his shortness of breath or development of chest discomfort. This is a summarized report of a complex medical history and hospital stay. For further details, please see the entire medical record. TIME SPENT: Time for this discharge was 50 minutes and 25 minutes was spent face- to-face with the patient and daughter discussing discharge plans and instructions. CONDITION ON DISCHARGE: Improved. Reviewed by JOEY THOMAS 08/24/16 1215 CC: Dr. Jd Delgado, Dr. Beck Pradhan, Dr. Shabbir Chong* [id number]/[facility], [place] #: [id number] KARI
== END 2016-08-12 16:11 | disposition home or self-care (01) | DRG 291 ==
LOC: ED 18:36 → MEDTELE 21:03
PROVIDERS: ADMIT Hospitalist; ATTEND Internal Medicine
PROC: 0DB98ZX Excision of Duodenum, Via Natural or Artificial Opening Endoscopic, Diagnostic (ICD-10-PCS; principal; 2016-08-10)
PROC: 0DBL8ZX Excision of Transverse Colon, Via Natural or Artificial Opening Endoscopic, Diagnostic (ICD-10-PCS; 2016-08-10)
PROC: 0DBN8ZX Excision of Sigmoid Colon, Via Natural or Artificial Opening Endoscopic, Diagnostic (ICD-10-PCS; 2016-08-10)
PROC: 0DBP8ZX Excision of Rectum, Via Natural or Artificial Opening Endoscopic, Diagnostic (ICD-10-PCS; 2016-08-10)
PROC: 0DBM8ZX Excision of Descending Colon, Via Natural or Artificial Opening Endoscopic, Diagnostic (ICD-10-PCS; 2016-08-10)
DX: I50.23 Acute on chronic systolic (congestive) heart failure (principal); J18.1 Lobar pneumonia, unspecified organism; J96.11 Chronic respiratory failure with hypoxia; I31.3 Pericardial effusion (noninflammatory); I27.2 Other secondary pulmonary hypertension; I95.9 Hypotension, unspecified; J44.0 Chronic obstructive pulmonary disease with (acute) lower respiratory infection; K92.2 Gastrointestinal hemorrhage, unspecified; J44.9 Chronic obstructive pulmonary disease, unspecified; Z99.81 Dependence on supplemental oxygen; I48.91 Unspecified atrial fibrillation; Z87.891 Personal history of nicotine dependence; N18.3 Chronic kidney disease, stage 3 (moderate); D50.9 Iron deficiency anemia, unspecified; D63.1 Anemia in chronic kidney disease; K63.5 Polyp of colon; K57.30 Diverticulosis of large intestine without perforation or abscess without bleeding; I08.3 Combined rheumatic disorders of mitral, aortic and tricuspid valves; K62.1 Rectal polyp; D12.3 Benign neoplasm of transverse colon; D12.4 Benign neoplasm of descending colon
CPT/HCPCS: 36415; 36600; 71010; 71020; 71250; 80048; 80053; 81003; 82272; 82550; 82553; 82607; 82668; 82728; 82746; 82803; 83540; 83550; 83605; 83735; 83880; 84484; 85014; 85018; 85025; 86140; 87040; 87070; 87077; 87205; 87899; 88305; 93005; 93306; 94640; 94760; A9270-GY; J0456; J0696; J1940; J2250; J2930

== ENCOUNTER 2016-09-17 02:11 | Inpatient (IN) | payer MEDICARE ==
[2016-09-17] MEDS ORDERED: methylPREDNISolone 125 MG* 2 ML VIAL IV ONE (02:14)
[2016-09-17] MEDS ORDERED: Albuterol/Ipratropium NEB.SOL* Albuterol 2.5 MG/Ipratropium 0.5 MG 3 ML INH ONE (02:14)
[2016-09-17] MEDS ORDERED: Furosemide IV* 10 MG/ML 10 ML VIAL (100 MG) IV ONE (02:16)
[2016-09-17 02:40] LABS: FIO2 100
[2016-09-17 02:46] LABS: PCO2 Arterial 37 mmHg (35-45)
[2016-09-17] MEDS ORDERED: cefTRIAXone(*) 1 GM in NS 0.9% 50 ML* 50 ML IVPB ONE (02:48)
[2016-09-17] MEDS ORDERED: Azithromycin IV(*) 500 MG in NS 0.9% 250 ML* 250 ML IVPB ONE (02:48)
[2016-09-17 03:09] LABS: Hematocrit 38 % (42-52); Hemoglobin 11.8 g/dl (14.0-18.0); Mean Corpuscular HGB Conc 31 g/dl (31-36); Mean Corpuscular Hemoglobin 29 pg (27-31); Mean Corpuscular Volume 96 fL (80-94); Mean Platelet Volume 8 um3 (7.4-10.4); Red Blood Count 4.02 10^6/ul (4.0-5.4); Red Cell Distribution Width 19 % (10.5-15); White Blood Count 18.4 10^3/ul (3.5-10.8)
[2016-09-17 03:12] LABS: Comments Flag Yes
[2016-09-17 03:22] LABS: Albumin 3.3 g/dL (3.2-5.2); BUN/Creatinine Ratio 14.7 (8-20); Calcium 8.8 mg/dL (8.6-10.3); EGFR Non-African American 33.4 (>60); Globulin 4.5 g/dL (2-4); Potassium 3.8 mmol/L (3.5-5.0); Total Bilirubin 0.7 mg/dL (0.2-1.0); Total Protein 7.8 g/dL (6.4-8.9)
[2016-09-17 03:25] LABS: Troponin I 0.17 ng/mL (<0.04)
[2016-09-17] MEDS ORDERED: Aspirin TAB* 325 MG PO ONE (04:05)
[2016-09-17] MEDS ORDERED: Aspirin Low Dose CHEW TAB* 81 MG PO ONE (05:04)
[2016-09-17] MEDS ORDERED: Albuterol/Ipratropium NEB.SOL* Albuterol 2.5 MG/Ipratropium 0.5 MG 3 ML INH PRN (06:04)
--- NOTE | 2016-09-17 06:20 | ED ---
Derian Ogden Adam, scribed for EveliaJose Armando on 09/17/16 at 0532 . Respiratory - HPI Summary HPI Summary: Pt is a 75 year old male presenting with respiratory distress. 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 EMS reports initial o2 sat of 78 which rocky to 88 after nebulizer and CPAP. Pt reports that his breathing improved after the EMS interventions. EMS reports HR of 120, capnography of 19, respiratory rate of 28, and BP of 161/85 en route to the ED. Pt is a former smoker. - History of Current Complaint Chief Complaint: EDRespiratoryDistress Stated Complaint: RESP DISTRESS Time Seen by Provider: 09/17/16 02:13 Hx Obtained From: Patient Onset/Duration: Sudden Onset, Lasting Hours, Still Present Timing: Constant Initial Severity: Moderate Current Severity: Moderate Pain Intensity: 0 Character: Wheezing, Dyspnea at Rest Sputum Amount: None Aggravating Factor(s): Nothing Alleviating Factor(s): Neb. Bronchodilators (Frequency Of Use), Oxygen Associated Signs and Symptoms: SOB - Allergy/Home Medications Allergies/Adverse Reactions: Allergies Allergy/AdvReac Type Severity Reaction Status Date / Time No Known Allergies Allergy Verified 09/17/16 03:14 Home Medications: Home Medications Amiodarone TAB* [Cordarone Tab*] 100 mg PO DAILY 09/17/16 [History Confirmed ] PMH/Surg Hx/FS Hx/Imm Hx Endocrine/Hematology History: Reports: Hx Anticoagulant Therapy - Eliquis Denies: Hx Diabetes, Hx Thyroid Disease Cardiovascular History: Reports: Hx Atrial Fibrillation, Hx Congestive Heart Failure Respiratory History: Reports: Hx Chronic Obstructive Pulmonary Disease (COPD) History: Reports: Hx Chronic Renal Failure Sensory History: Reports: Hx Contacts or Glasses Denies: Hx Cataracts, Hx Eye Injury, Hx Eye Prosthesis, Hx Glaucoma, Hx Legally Blind, Hx Macular Degeneration, Hx Vision Problem, Hx Deafness, Hx Hearing Aid, Hx Hearing Problem, Other Sensory Impairments Opthamlomology History: Reports: Hx Contacts or Glasses Denies: Hx Cataracts, Hx Eye Injury, Hx Eye Prosthesis, Hx Glaucoma, Hx Legally Blind, Hx Macular Degeneration, Hx Vision Problem, Other Sensory Impairments - Surgical History Surgery Procedure, Year, and Place: Cardiac Catheterization (03/2016) - Immunization History Date of Tetanus Vaccine: unkown Date of Influenza Vaccine: Fall 2015 Infectious Disease History: No Infectious Disease History: Denies: Traveled Outside the [place] in Last 30 Days - Family History Known Family History: Negative: Diabetes - Social History Occupation: Retired Lives: With Family - Alcohol Use: None Hx Substance Use: No Substance Use Type: Reports: None Hx Tobacco Use: Yes Smoking Status (MU): Former Smoker Type: Cigarettes Have You Smoked in the Last Year: No Review of Systems Negative: Fever Positive: Shortness Of Breath All Other Systems Reviewed And Are Negative: Yes Physical Exam Triage Information Reviewed: Yes Vital Signs On Initial Exam: Initial Vitals Temp 99.5 F 09/17/16 02:19 Vital Signs Reviewed: Yes Appearance: Positive: Well-Appearing, No Pain Distress Skin: Positive: Warm, Skin Color Reflects Adequate Perfusion, Dry Head/Face: Positive: Normal Head/Face Inspection Eyes: Positive: EOMI, LETICIA ENT: Positive: Normal ENT inspection Neck: Positive: Supple, Nontender Respiratory/Lung Sounds: Positive: Rales - Bilateral, Wheezes Cardiovascular: Positive: Tachycardia Abdomen Description: Positive: Nontender, Soft Bowel Sounds: Positive: Present Musculoskeletal: Positive: Normal, Strength/ROM Intact - [place] Coma Scale Coma Scale Total: 15 Diagnostics - Vital Signs Vital Signs Temp Pulse Resp BP Pulse Ox 09/17/16 05:00 105 17 97/59 97 09/17/16 04:30 113 19 128/66 98 09/17/16 04:00 103 19 118/62 97 09/17/16 03:30 108 21 118/32 94 09/17/16 03:24 114 23 97 09/17/16 03:00 19 148/76 09/17/16 02:53 119 28 91 09/17/16 02:39 99.8 F 122 26 167/69 90 09/17/16 02:34 123 09/17/16 02:30 167/69 09/17/16 02:19 99.5 F - Laboratory Lab Results: Lab Results 09/17/16 09/17/16 09/17/16 Range/Units 02:20 02:20 02:20 WBC 18.4 H (3.5-10.8) 10^3/ul RBC 4.02 (4.0-5.4) 10^6/ul Hgb 11.8 L (14.0-18.0) g/dl Hct 38 L (42-52) % MCV 96 H (80-94) fL MCH 29 (27-31) pg MCHC 31 (31-36) g/dl RDW 19 H (10.5-15) % Plt Count 366 (150-450) 10^3/ul MPV 8 (7.4-10.4) um3 Neut % (Auto) 90.9 H (38-83) % Lymph % (Auto) 3.4 L (25-47) % [place] % (Auto) 4.7 (1-9) % Eos % (Auto) 0.3 (0-6) % Baso % (Auto) 0.7 (0-2) % Absolute Neuts (auto) 16.7 H (1.5-7.7) 10^3/ul Absolute Lymphs (auto) 0.6 L (1.0-4.8) 10^3/ul Absolute Monos (auto) 0.9 H (0-0.8) 10^3/ul Absolute Eos (auto) 0.1 (0-0.6) 10^3/ul Absolute Basos (auto) 0.1 (0-0.2) 10^3/ul Absolute Nucleated RBC 0.02 10^3/ul Nucleated RBC % 0.1 Patient Temperature ABG pH (7.35-7.45) ABG pCO2 (35-45) mmHg ABG pO2 (80-100) mmHg ABG HCO3 (19-31) mmol/L ABG O2 Saturation (95-98) % ABG Base Excess (-2.0-2.0) Respiration Rate O2 Delivery Device Ventilator Type Vent Mode FiO2 Inspiratory Time PEEP Pressure Support Pressure Control EPAP IPAP BiPAP Sodium 137 (133-145) mmol/L Potassium 3.8 (3.5-5.0) mmol/L Chloride 106 (101-111) mmol/L Carbon Dioxide 21 L (22-32) mmol/L Anion Gap 10 (2-11) mmol/L BUN 29 H (6-24) mg/dL Creatinine 1.97 H (0.67-1.17) mg/dL Est GFR ( Amer) 43.0 (>60) Est GFR (Non-Af Amer) 33.4 (>60) BUN/Creatinine Ratio 14.7 (8-20) Glucose 160 H (70-100) mg/dL Lactic Acid 4.6 H* (0.5-2.0) mmol/L Calcium 8.8 (8.6-10.3) mg/dL Total Bilirubin 0.70 (0.2-1.0) mg/dL AST 18 (13-39) U/L ALT 8 (7-52) U/L Alkaline Phosphatase 68 (34-104) U/L Troponin I 0.17 H* (<0.04) ng/mL B-Natriuretic Peptide ( - 100) pg/mL Total Protein 7.8 (6.4-8.9) g/dL Albumin 3.3 (3.2-5.2) g/dL Globulin 4.5 H (2-4) g/dL Albumin/Globulin Ratio 0.7 L (1-3) 09/17/16 09/17/16 Range/Units 02:20 02:30 WBC (3.5-10.8) 10^3/ul RBC (4.0-5.4) 10^6/ul Hgb (14.0-18.0) g/dl Hct (42-52) % MCV (80-94) fL MCH (27-31) pg MCHC (31-36) g/dl RDW (10.5-15) % Plt Count (150-450) 10^3/ul MPV (7.4-10.4) um3 Neut % (Auto) (38-83) % Lymph % (Auto) (25-47) % [place] % (Auto) (1-9) % Eos % (Auto) (0-6) % Baso % (Auto) (0-2) % Absolute Neuts (auto) (1.5-7.7) 10^3/ul Absolute Lymphs (auto) (1.0-4.8) 10^3/ul Absolute Monos (auto) (0-0.8) 10^3/ul Absolute Eos (auto) (0-0.6) 10^3/ul Absolute Basos (auto) (0-0.2) 10^3/ul Absolute Nucleated RBC 10^3/ul Nucleated RBC % Patient Temperature Not Reportable ABG pH 7.32 L (7.35-7.45) ABG pCO2 37 (35-45) mmHg ABG pO2 59 L* (80-100) mmHg ABG HCO3 19.7 (19-31) mmol/L ABG O2 Saturation 90.4 L (95-98) % ABG Base Excess -6.4 L (-2.0-2.0) Respiration Rate Not Reportable O2 Delivery Device Bipap Ventilator Type Not Reportable Vent Mode Not Reportable FiO2 100 Inspiratory Time Not Reportable PEEP Not Reportable Pressure Support Not Reportable Pressure Control Not Reportable EPAP Not Reportable IPAP Not Reportable BiPAP Not Reportable Sodium (133-145) mmol/L Potassium (3.5-5.0) mmol/L Chloride (101-111) mmol/L Carbon Dioxide (22-32) mmol/L Anion Gap (2-11) mmol/L BUN (6-24) mg/dL Creatinine (0.67-1.17) mg/dL Est GFR ( Amer) (>60) Est GFR (Non-Af Amer) (>60) BUN/Creatinine Ratio (8-20) Glucose (70-100) mg/dL Lactic Acid (0.5-2.0) mmol/L Calcium (8.6-10.3) mg/dL Total Bilirubin (0.2-1.0) mg/dL AST (13-39) U/L ALT (7-52) U/L Alkaline Phosphatase (34-104) U/L Troponin I (<0.04) ng/mL B-Natriuretic Peptide 1235 H ( - 100) pg/mL Total Protein (6.4-8.9) g/dL Albumin (3.2-5.2) g/dL Globulin (2-4) g/dL Albumin/Globulin Ratio (1-3) Result Diagrams: 09/17/16 02:20 09/17/16 02:20 Lab Statement: Any lab studies that have been ordered have been reviewed, and results considered in the medical decision making process. - Radiology CXR Radiology Interpretation Completed By: ED Physician - Bilateral PNA, CHF. - EKG 02:20 Cardiac Rate: Tachycardia - 121 BPM EKG Rhythm: Sinus Tachycardia - Additional Comments Diagnostic Additional Comments: Lactic Acid - 4.6 Troponin I - 0.17 Disposition - Course Course Of Treatment: Patient will be admitted to ICU. - Diagnoses Provider Diagnoses: Bilateral pneumonia, COPD exacerbation, CHF (congestive heart failure), ACS ( acute coronary syndrome) - Critical Care Time Critical Care Time: 30-74 min - 30 minutes Discharge - Discharge Plan Condition: Stable Disposition: ADMITT[facility] TO [facility] The documentation as recorded by the Derian lay Adam accurately reflects the service I personally performed and the decisions made by me, Jose Armando Altamirano.
[2016-09-17] MEDS ORDERED: Piperac/Tazob 3.375 gm in NS* 3.375 GM/100 ML BAG IVPB ONE (07:00)
[2016-09-17] MEDS ORDERED: Furosemide TAB* 20 MG PO SCH (07:00)
[2016-09-17] MEDS: Azithromycin IV(*) 500 MG in NS 0.9% 250 ML* 250 ML IVPB SCH (07:34)
[2016-09-17] MEDS: Amiodarone TAB* 200 MG PO SCH (08:48)
[2016-09-17] MEDS: Diltiazem CD CAP* 120 MG PO SCH (08:48)
[2016-09-17] MEDS ORDERED: BUDESONIDE 1 MG IN SCH (09:00)
[2016-09-17] MEDS: Mometasone/Formoter 100/5 MDI INH SCH ×2 (09:02→20:53)
[2016-09-17] MEDS ORDERED: Vancomycin(*) 1,250 MG in NS 0.9% 250 ML* 250 ML IVPB SCH (09:35)
--- NOTE | 2016-09-17 09:53 | RAD ---
Indication: Shortness of breath. Single frontal view of the chest performed at 0240 hours was reviewed. Comparison is made with previous exam dated August 11, 2016. Cardiomegaly is noted. Left pleural effusion. Interstitial edema and consolidation is noted. This may represent CHF superimposed upon COPD. Additionally there may be bibasilar infiltrates noted. IMPRESSION: INFILTRATE AND LEFT PLEURAL EFFUSION. INCREASED INTERSTITIAL EDEMA. THIS MAY REPRESENT CHF SUPERIMPOSED UPON CHRONIC INTERSTITIAL DISEASE.
[2016-09-17] MEDS: predniSONE TAB* 20 MG PO SCH (10:24)
[2016-09-17] MEDS: Budesonide NEB* 0.5 MG/2 ML NEB.SOLN INH SCH ×2 (10:40→19:22)
--- NOTE | 2016-09-17 11:21 | PN ---
Progress Note - Progress Note Note: CRITICAL CARE MEDICINE Date: 09/17/16 Time: 1035 SUBJECTIVE: Patient seen and examined. at bedside. PHYSICAL EXAM: Vital Signs: Reviewed. Neurologic: awake, communicating. HEENT: pupils equal. Sclera anicteric. poor dentition. Trachea midline. Cardiovascular: S1 S2 distant. Respiratory: distant, b/l fine rales Abdomen: Soft, nt. Extremities: Warm. Access: piv LABS: Reviewed. IMAGING: Reviewed. CXR with severe emphysema and further airspace disease MEDICATIONS: Reviewed. 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 comfortable enough. Cardiovascular: Not give sepsis fluids sec to component of acute on chronic systolic HF, and continue to hold off on fluid. Would not overtly diuresis yet either, but allow him to compartmentalize appropriately with rescue from his resp failure. Respiratory: on bipap this am. much better it seems. allow him to wean off. luckily on his abg he was more just hypoxic and needing early O2 rescue rather then ventilation. Can come off to HFO2 today. Needs abx and copd adjunctives to avoid exacerbating. Gastrointestinal: can have po today Renal/Metabolic: At about his baseline. LA more related to his wob and can clear with rescue bipap. Infectious Disease: on zosyn and azithro. mrsa screen neg and given his condition will hold off on vanco needs and keep as is. f/u cultures. More typicals likely but also at risk for even pseudomonas. At risk for fungal, molds , but with his acuity and description of rigors would lead more towards bacterial. Check urine ag. Hematology: stable. does not desire to resume full outpt anticoagulation Endocrine: prednisone pulse. Musculoskeletal: oob. Psych/Social: and pt updated. Agree with DNR/DNI, trial niv. Supportive and preventative care as ordered. SUP: po VTE prophylaxis: heparin subq Disposition: ICU today, hopefully to floor in another 24-48h Code Status: DNR, DNI, trial niv Critical Care Time: 45min Kailey Tillman DO
[2016-09-17] MEDS: Heparin VIAL(*) 5000 UNITS/ML VIAL (FIVE THOUSAND) SUBCUT SCH ×2 (14:27→21:13)
[2016-09-17] MEDS: Piperac/Tazob 3.375 gm in NS* 3.375 GM/100 ML BAG IVPB SCH ×2 (14:28→20:53)
--- NOTE | 2016-09-17 17:53 | HP ---
HISTORY AND PHYSICAL: DATE OF ADMISSION: 09/17/16 CHIEF COMPLAINT: Shortness of breath. HISTORY OF PRESENT ILLNESS: The patient is a 75-year-old gentleman who has a history of COPD and CHF, who said early this morning, all of a sudden, he felt he could not breathe and so he was brought to the ER by his via EMS on BiPAP. Actually, it started last couple of days. He has always a lot of trouble breathing and in fact uses a walker to just to get to the bathroom because of his shortness of breath, but he has noticed over the last couple of days that he has increased cough, productive of dark phlegm. He is always wheezing, so there is not any more wheezing than usual. He has no chest pain. No fevers or chills. He has not weighed himself lately but he is not sure if he put on weight but thought his legs were more swollen. In the ER, the patient was evaluated requiring BiPAP, having an elevated white count and a chest x-ray, this appears consistent with possible pneumonia. PAST MEDICAL HISTORY: He has a past medical history significant for atrial fibrillation, COPD, chronic kidney disease, systolic congestive heart failure with an EF most recently of 50% to 55%. CURRENT MEDICATIONS: 1. Dulera 100/5 two puffs twice daily. 2. Furosemide 20 mg as directed. 3. Diltiazem CD 120 mg daily. 4. Budesonide 1 mg inhaled twice daily. 5. Amiodarone 100 mg daily. 6. DuoNeb one nebulizer q.4 hours as needed. ALLERGIES: No known drug allergies. FAMILY HISTORY: The patient is adopted. SOCIAL HISTORY: Ex-tobacco, quit a year and a half ago, smokes 2 to 3 packs a day. No alcohol, recreational drug use. His stepdaughter, Yuridia Awad, is his healthcare proxy. REVIEW OF SYSTEMS: A 14-point review of systems was completed with the patient. All pertinent positives and negatives are in the history of present illness, otherwise negative. PHYSICAL EXAMINATION GENERAL: A pleasant gentleman lying in bed, in no acute distress. VITAL SIGNS: Blood pressure 97/59, pulse ox 97%, respiratory rate 17 breaths per minute, heart rate 105 beats per minute, temperature 99.8 degrees. HEENT: Normocephalic, atraumatic. Pupils equal, round, and reactive to light. Moist mucous membranes. NECK: Supple. No JVD, bruits, palpable thyroid, or lymphadenopathy. CHEST: Diminished breath sounds bilaterally. Bilateral rales right greater than left. ABDOMEN: Positive bowel sounds in all 4 quadrants. Soft, nontender, nondistended. EXTREMITIES: No cyanosis, clubbing. Minimal edema. NEURO: Alert and oriented x3. Moves all extremities. SKIN: No rashes or abnormalities. DIAGNOSTIC STUDIES/LAB DATA: White count 19.4, hemoglobin 11.8, hematocrit 38 , platelets 266. Sodium is 137, potassium 3.8, chloride 106, CO2 21. BUN 29, creatinine 1.97, glucose is 160. Troponin is 0.17. BNP is 1235. Blood gases, pH 7.32, PCO2 is 37, PO2 59. Chest x-ray, it looks like bilateral infiltrates with a left-sided pleural effusion. EKG shows sinus tachycardia, rate of 121 beats per minute. Normal axis. No acute ST or T wave changes. ASSESSMENT AND PLAN: 1. Respiratory distress, now on BiPAP, I think it is likely secondary to bilateral pneumonia, less likely congestive heart failure. I will place the patient on Zosyn infusion protocol . Check legionella, pneumococcal antigen, check C and S. I will check his daily weights. Continue his diuretics and strict I's and O's. I will also cycle his troponins, although I think it is most likely demand ischemia. He is currently feeling better on the BiPAP. 2. Atrial fibrillation. Continue amiodarone. He is now off the anticoagulation as per the patient's request. 3. FEN. Regular diet. 4. DVT prophylaxis. Heparin subcutaneously. 5. The patient is a do not resuscitate. TIME SPENT: Over 75 minutes was spent on this H and P, more than 40 minutes of which was spent in direct odzw-th-tehw contact with the patient, evaluation, physical exam, counseling and coordination of care. CC: Dr. Jd Delgado* [id number]/[facility] #: [id number] KARI
[2016-09-18] MEDS: Piperac/Tazob 3.375 gm in NS* 3.375 GM/100 ML BAG IVPB SCH ×3 (04:45→21:15)
[2016-09-18] MEDS: Heparin VIAL(*) 5000 UNITS/ML VIAL (FIVE THOUSAND) SUBCUT SCH ×3 (05:11→21:15)
[2016-09-18 05:19] LABS: Hematocrit 28 % (42-52); Hemoglobin 8.7 g/dl (14.0-18.0); Mean Corpuscular HGB Conc 31 g/dl (31-36); Mean Corpuscular Hemoglobin 29 pg (27-31); Mean Corpuscular Volume 94 fL (80-94); Mean Platelet Volume 8 um3 (7.4-10.4); Red Blood Count 2.98 10^6/ul (4.0-5.4); Red Cell Distribution Width 19 % (10.5-15); White Blood Count 19.3 10^3/ul (3.5-10.8)
[2016-09-18 05:37] LABS: Calcium 8.4 mg/dL (8.6-10.3); EGFR African American 37.8 (>60); EGFR Non-African American 29.4 (>60); Magnesium 2.2 mg/dL (1.9-2.7); Phosphorus 4.1 mg/dL (2.5-5.0)
[2016-09-18] MEDS: Budesonide NEB* 0.5 MG/2 ML NEB.SOLN INH SCH ×2 (07:17→19:41)
[2016-09-18] MEDS: Mometasone/Formoter 100/5 MDI INH SCH ×2 (07:17→19:42)
[2016-09-18] MEDS: Diltiazem CD CAP* 120 MG PO SCH (07:34)
[2016-09-18] MEDS: predniSONE TAB* 20 MG PO SCH (07:34)
[2016-09-18] MEDS: Amiodarone TAB* 200 MG PO SCH (07:34)
[2016-09-18] MEDS: Azithromycin IV(*) 500 MG in NS 0.9% 250 ML* 250 ML IVPB SCH ×2 (08:34→08:35)
--- NOTE | 2016-09-18 13:04 | PN ---
Critical Care Services: Breathing comfortably this AM - did not tolerate BIPAP overnight. Vital Signs: Temp Pulse Resp BP SpO2 FiO2 98.6 F 73 11 125/57 92 100 Physical Exam: Gen: Alert, oriented, and breathing comfortably Lungs:Coarse rhonchi. No crackles. Extremities:No cyanosis or edema. Fluid Balance (Past 24 Hours): 09/18/16 06:59 Intake Total 1654 Output Total 500 Balance +1154 Weight 135lb 13oz Intake: IV Fluids 384 ABX - AZITHROMYCIN ABX - ZOSYN 384 Oral 1270 Output: Urine 500 Labs: 09/18/16 09/18/16 05:05 05:05 WBC 19.3 RBC 2.98 L Hgb 8.7 Hct 28 Plt Count 234 Sodium 137 Potassium 4.0 Chloride 101 Carbon Dioxide 23 BUN 44 Creatinine 2.20 Glucose 131 Phosphorus 4.1 Magnesium 2.2 Studies: Urine negative for Legionella and pneumococcal antigens. Blood cultures negative so far. Nutrition: On low sodium diet Impression: Clinically stable. Apparent pneumonia, but no pathogen isolated. Elevtated creatinine is worrisome. Plan: 5 days of azitromycin. Am hesitatnt to diurese because of elevated creatinine. Critical Care Time: 35 minutes
[2016-09-19] MEDS: Piperac/Tazob 3.375 gm in NS* 3.375 GM/100 ML BAG IVPB SCH ×3 (05:07→21:49)
[2016-09-19] MEDS: Heparin VIAL(*) 5000 UNITS/ML VIAL (FIVE THOUSAND) SUBCUT SCH ×3 (05:08→21:49)
[2016-09-19 05:22] LABS: Hematocrit 30 % (42-52); Hemoglobin 9.3 g/dl (14.0-18.0); Mean Corpuscular HGB Conc 31 g/dl (31-36); Mean Corpuscular Hemoglobin 29 pg (27-31); Mean Corpuscular Volume 94 fL (80-94); Mean Platelet Volume 9 um3 (7.4-10.4); Red Blood Count 3.17 10^6/ul (4.0-5.4); Red Cell Distribution Width 18 % (10.5-15); White Blood Count 16.8 10^3/ul (3.5-10.8)
[2016-09-19 05:40] LABS: BUN/Creatinine Ratio 19.8 (8-20); Calcium 8.4 mg/dL (8.6-10.3); EGFR African American 31.5 (>60); EGFR Non-African American 24.5 (>60); Potassium 4.1 mmol/L (3.5-5.0)
[2016-09-19] MEDS: Mometasone/Formoter 100/5 MDI INH SCH ×2 (08:34→19:37)
[2016-09-19] MEDS: Budesonide NEB* 0.5 MG/2 ML NEB.SOLN INH SCH ×2 (08:34→19:37)
[2016-09-19] MEDS ORDERED: NS 0.9% 250 ML* 250 ML ONE (09:18)
[2016-09-19] MEDS: Amiodarone TAB* 200 MG PO SCH (09:20)
[2016-09-19] MEDS: predniSONE TAB* 20 MG PO SCH (09:21)
[2016-09-19] MEDS: Azithromycin IV(*) 500 MG in NS 0.9% 250 ML* 250 ML IVPB SCH (09:22)
[2016-09-19] MEDS: Diltiazem CD CAP* 120 MG PO SCH (09:24)
--- NOTE | 2016-09-19 16:26 | PN ---
Critical Care Services: No real change in clinical status. Is stable, with severe gas exchange abnormality. Continues to require high-dose O2. Vital Signs: Temp Pulse Resp BP SpO2 FiO2 97.8 F 73 10 117/61 94 90 Physical Exam: Gen: HEENT: Lungs: Cardiac: Abdomen: Extremities: Neuro: Fluid Balance (Past 24 Hours): 09/19/16 06:59 Intake Total 2550 Output Total 350 Balance +2200 Weight 139 lb 12.3oz Intake: IV Fluids 450 ABX - AZITHROMYCIN 250 ABX - ZOSYN 200 IVPB 100 ABX - ZOSYN 100 Oral 2000 Output: Urine 350 Other: Estimated Void Large Date of Last Bowel 09/19/16 Movement # Bowel Movements 1 Estimated Stool Amount Medium # Voids 1 Labs: 09/19/16 09/19/16 05:13 05:13 WBC 16.8 Hgb 9.3 Hct 30 RDW 18 Plt Count 234 Sodium 133 Potassium 4.1 Chloride 105 Carbon Dioxide 22 Anion Gap 6 BUN 51 Creatinine 2.58 Glucose 113 Studies: None today (Cardiac ECHO ordered) Nutrition: Oral diet. Impression: Patient has severe COPD and continues to require high-dose O2, but it is hard to tell if there is an element of CHF in this picture. Plan: Cardiac ECHO and evaluation by cardiology service. I have also sent a palliative care consult.
[2016-09-19] MEDS ORDERED: Morphine ORAL CONCENTRATE* 5 MG/0.25 ML ORAL.SYRIN SL PRN ×2 (16:36→16:37)
[2016-09-19] MEDS ORDERED: Senna TAB PO PRN (16:37)
[2016-09-19] MEDS ORDERED: Docusate CAP* 100 MG PO PRN (16:37)
--- NOTE | 2016-09-19 23:16 | CONS ---
PALLIATIVE CARE CONSULTATION REPORT: DATE OF CONSULTATION: 09/19/16 PRIMARY CARE PHYSICIAN: Jd Delgado MD REQUESTING PHYSICIAN FOR CONSULTATION: Parminder Cantu MD HOSPITAL COURSE: This is a 75-year-old male with the past medical history of COPD on 3 to 4 L at home continuously who presented to the emergency room on the with shortness of breath. EMS was called and he was placed on BIPAP on arrival to the emergency room. His chest x-ray on admission was read as infiltrate and left pleural effusion; increased interstitial edema, this may represent CHF superimposed upon chronic interstitial disease. The patient was admitted to the ICU on BIPAP, started on empiric antibiotics and Dr. Tillman initially took over care. The patient transitioned to high-flow Vapotherm and is currently on 15 L at 100%. When speaking with him about being at home, he states he has come into the hospital 4 times since March for cardiac and respiratory related issues. He lives in a mobile home with his . He states that he gets dyspneic when ambulating to the bathroom which is only a few feet away. He mostly sits in his chair and watches TV. He no longer has a car. He only leaves to go to doctor's appointments. He states he does not want to keep going back to the hospital. He has had a decrease in appetite with a poor appetite and has limited access to sufficient meals. There is concern for care at home. I spoke with his stepdaughter who the patient defers all of his medical decisions to. Her name is Yuridia Montalvo and she states that his is 81 years old and is concerned about the care at home as she worries with his worsening and deteriorations that he will not be safe to be discharged home with hospice services. I discussed he is eligible for hospice with the terminal diagnosis of end-stage COPD. She thinks that hospice is a good idea for him and the patient is agreeable to this as well. He states his breathing is stable at this time. He denies any pain or anxiety. Otherwise, review of systems is negative. PAST MEDICAL HISTORY: 1. 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 2. History of atrial fibrillation. 3. CKD. 4. History of systolic congestive heart failure with most recent EF of 50%. 5. Four admissions since March 2016. INPATIENT MEDICATIONS: 1. DuoNeb q.4 hours as needed. 2. Amiodarone 100 mg p.o. daily. 3. Azithromycin 500 mg daily. 4. Budesonide 0.5 mg, held, b.i.d. 5. Diltiazem CD 120 mg p.o. daily. 6. Colace 100 mg daily as needed. 7. Heparin subcu t.i.d. 8. Mometasone and formoterol 2 puffs inhaled b.i.d. 9. Zosyn 3.375 q.8 hours. 10. Senna 1 tablet at bedtime. 11. Prednisone 40 mg daily. ALLERGIES: No known drug allergies. FAMILY HISTORY: The patient is adopted. SOCIAL HISTORY: As mentioned, the patient lives at home with his , Viri. His healthcare proxy is his stepdaughter, Yuridia Montalvo, phone # [phone]. He has a significant smoking history, quit a year and a half ago, a pack per day for 60 years. No alcohol use. He ambulates with a walker, but is limited in his ambulation due to his severe dyspnea. His MOLST form is currently a DNR/ DNI with a trial of BIPAP. REVIEW OF SYSTEMS: As mentioned in the HPI. PHYSICAL EXAMINATION: GENERAL: In no acute distress. Resting comfortably. VITAL SIGNS: Temp 97.9, pulse rate 72, respiratory rate is 12, oxygen saturation 96% on 100% of Vapotherm at 15 L, blood pressure is 119/58. HEENT: Neck supple. No lymphadenopathy. Pupils are equal and reactive, anicteric. Head: Normocephalic. Oropharynx, mucous membranes are moist. RESPIRATORY: Diminished breath sounds with bibasilar crackles. No increased work of breathing. Prolonged expiratory phase. CARDIAC: Regular rate and rhythm. ABDOMEN: Soft, nontender, nondistended. EXTREMITIES: No clubbing, cyanosis, or edema. + 1 DP's. NEUROLOGIC: Alert and oriented x3. No focal neurologic deficits. LABORATORY DATA: White count 16.8, hemoglobin 9.3, hematocrit 30, platelets 234. Sodium 133, potassium 4.1, chloride 105, bicarb 22, BUN 51, creatinine 2.58. ASSESSMENT AND RECOMMENDATION: This is a 75-year-old male with the past medical history of end-stage chronic obstructive pulmonary disease, who presents to the emergency room with dyspnea, is now in the ICU in respiratory distress on Vapotherm with symptoms currently controlled. He is eligible for hospice services with the terminal diagnosis of end-stage chronic obstructive pulmonary disease with the secondary diagnosis of systolic heart failure and chronic kidney disease. He is interested in hospice as well as his daughter who he defers to for all of his decision. The concern currently is if he can be cared for safely at home with his , who is 81 years old and he does not have as much family involvement. The plan is going to be a meeting tomorrow with Adrienne, our social media campaign manager, the daughter, the , and the patient to discuss discharge planning and if a usp with hospice or the residence would be a safer disposition plan for him. In the interim, I have started him on morphine 2 mg sublingual every 2 hours as needed for air hunger. At this point , it is currently not needed. Thank you for this consultation and I will follow along with you. TIME SPENT: Greater than 90 minutes was spent doing the consultation, more than half the time was spent in direct patient contact. CC: Jd Delgado MD* [id number]/[facility] #: [id number] MTDKareem
[2016-09-20] MEDS: Piperac/Tazob 3.375 gm in NS* 3.375 GM/100 ML BAG IVPB SCH ×3 (05:20→21:40)
[2016-09-20] MEDS: Heparin VIAL(*) 5000 UNITS/ML VIAL (FIVE THOUSAND) SUBCUT SCH ×3 (06:00→21:40)
[2016-09-20] MEDS: Azithromycin IV(*) 500 MG in NS 0.9% 250 ML* 250 ML IVPB SCH (08:38)
[2016-09-20] MEDS: Amiodarone TAB* 200 MG PO SCH (08:39)
[2016-09-20] MEDS: predniSONE TAB* 20 MG PO SCH (08:39)
[2016-09-20] MEDS: Diltiazem CD CAP* 120 MG PO SCH (08:41)
[2016-09-20] MEDS: Budesonide NEB* 0.5 MG/2 ML NEB.SOLN INH SCH ×2 (10:03→20:06)
[2016-09-20] MEDS: Mometasone/Formoter 100/5 MDI INH SCH ×4 (10:07→20:06)
--- NOTE | 2016-09-20 10:07 | ECHO ---
Patient: SRINIVAS STEPHENS [facility] Rec#: [id number] : 1940 Date: 09/20/2016 Age: 75y Height: 172.72 cm / 68.0 in Weight: 63.5 kg / 140.0 lbs Sex: M BSA: 1.76 Room#: ICU 9 Admit Date#: 09/17/2016 Type: Inpatient Referring: Parminder Cantu MD Reading: Beck Pradhan MD Director Of Market Research: Alanna Jones,RDCS,RDMS CC: Jd Delgado Transthoracic Echocardiogram Indication: Respiratory Abnormality BP: 155/78 HR: 83 Rhythm: NSR Indications Respiratory Abnormality Findings History: COPD, CHF, AFIB, CKD, pericardial effusion Technical Comments: The study quality is good. Completed 0840 Left Ventricle: The left ventricular chamber size is normal. Mild to moderate concentric left ventricular hypertrophy is observed. There is a prominent septal knuckle. The estimated ejection fraction is 55-60%. There is septal flattening of the interventricular septum consistent with right ventricular volume or pressure overload. The assessment of diastolic function is non-diagnostic. Left Atrium: The left atrium is mildly dilated. Right Ventricle: The right ventricle is mildly dilated. The right ventricular global systolic function is moderately reduced. Right Atrium: The right atrium is moderately dilated. Aortic Valve: The aortic valve is trileaflet. The aortic valve leaflets are mildly thickened. There is aortic annular calcification. There is a trace of aortic regurgitation. Mitral Valve: There is mitral annular calcification. There is mild mitral regurgitation. There is no evidence of mitral stenosis. Tricuspid Valve: The tricuspid valve leaflets are normal. There is severe tricuspid regurgitation. There is evidence of severe pulmonary hypertension. Pulmonic Valve: There is no evidence of pulmonic valve thickening. There is a trace pulmonic regurgitation. Pericardium: A pericardial effusion is visualized. There is a moderate pericardial effusion. There are no signs of significant hemodynamic compromise. There is a circumferential pericardial effusion. Aorta: The aortic root appears normal. There is no dilatation of the aortic arch. Pulmonary Artery: The main pulmonary artery is not well visualized. Venous: The inferior vena cava is dilated. There is a greater than 50% respiratory change in the inferior vena cava dimension. Summary: There are no significant changes when compared to the previous study done on 08/08/16 Conclusions Mild to moderate concentric left ventricular hypertrophy is observed. There is a prominent septal knuckle. The estimated ejection fraction is 55-60%. There is septal flattening of the interventricular septum consistent with right ventricular volume or pressure overload. The right ventricular global systolic function is moderately reduced. The aortic valve leaflets are mildly thickened. There is a trace of aortic regurgitation. There is mild mitral regurgitation. There is severe tricuspid regurgitation. There is evidence of severe pulmonary hypertension. There is a moderate pericardial effusion. There are no signs of significant hemodynamic compromise. There is a circumferential pericardial effusion. Measurements Name Value Normal Range RVIDd (AP) 2D 3.6 cm (0.9 - 2.6) RVDdMajor (2D) 4.2 cm (2.2 - 4.4) RAd ISD 4CH 5.8 cm (3.4 - 4.9) RA (A4C)W 5.8 cm (2.9 - 4.6) IVSd (2D) 1.7 cm (0.6 - 1) LVPWd (2D) 1.3 cm (0.6 - 1) LVIDd (2D) 3.6 cm (3.6 - 5.4) LVIDs (2D) 3 cm - LV FS (2D) 16 % (25 - 45) Aortic Annulus 2 cm (1.4 - 2.6) Ao root diameter (2D) 2.7 cm (2.1 - 3.5) Ascending Ao 3.2 cm (2.1 - 3.4) Aortic arch 2.4 cm (1.8 - 3.4) LA dimension (AP) 2D 3.9 cm (2.3 - 3.8) LAd ISD 4CH 5.9 cm (2.9 - 5.3) LA ISD 4CH W 2.9 cm (2.5 - 4.5) Name Value Normal Range LA ESV SP 4CH (A/L) 44.3 ml - LA ESV SP 2CH (A/L) 60.96 ml - LA ESV BP (A/L) 54.89 ml - LA ESV BP (A/L) index 31 ml/m2 - LA ESV SP 4CH (MOD) 42.23 ml - LA ESV SP 2CH (MOD) 58.18 ml - Name Value Normal Range MV E-wave Vmax 0.5 m/sec - MV deceleration time 67 msec - MV A-wave Vmax 1.2 m/sec - MV E:A ratio 0.4 ratio - P. vein S-wave Vmax 0.3 m/sec - P. vein D-wave Vmax 0.4 m/sec - P. vein A-wave duration 100 msec - LV lateral e' Vmax 0.05 m/sec - LV E:e' lateral ratio 10 ratio - Name Value Normal Range AV Vmax 1.2 m/sec - AV VTI 28.1 cm - AV peak gradient 8 mmHg - AV mean gradient 4.4 mmHg - LVOT diameter 2 cm - LVOT Vmax 0.8 m/sec - LVOT VTI 20.8 cm - LVOT peak gradient 2.6 mmHg - LVOT mean gradient 1.5 mmHg - SV LVOT 65.4 ml - MATHEW (continuity Vmax) 2.1 cm2 - MATHEW (continuity VTI) 2.3 cm2 - Name Value Normal Range MV Vmax 1.2 m/sec - MV VTI 17.5 cm - MV peak gradient 6 mmHg - MV mean gradient 2.6 mmHg - MV PHT 22 msec - MVA (PHT) 10 cm2 - MVA (continuity VTI) 3.7 cm2 - Name Value Normal Range TR Vmax 4.3 m/sec - TR peak gradient 74 mmHg - RAP 15 mmHg - RVSP 89 mmHg - IVC diameter 2.7 cm - Name Value Normal Range PV Vmax 0.6 m/sec - PV peak gradient 1.4 mmHg -
--- NOTE | 2016-09-20 18:27 | PN ---
Critical Care Services: No change in clinical status. Continues to require high-flow nasal O2 - O2 sats fall to below 60% when O2 requirement reduced!! Had cardiac ECHO today, which showed LVH and pericardial effusion, but good LVEF (about 50%) and no evidence of tamponade. Vital Signs: Temp Pulse Resp BP SpO2 FiO2 99.2 F 92 16 138/94 85 100 Physical Exam: Gen:Appears comfortable. No respiratory distress. Lungs:Coarse rhonchi. No crackles Extremities: Cool. No edema. Fluid Balance (Past 24 Hours): 09/20/16 06:59 Intake Total 1743 Output Total 1125 Balance +618 Weight 140 lb 7oz Intake: IV Fluids 483 ABX - AZITHROMYCIN 250 ABX - ZOSYN 233 IVPB ABX - ZOSYN Oral 1260 Output: Urine 1125 Emesis Other: Estimated Void Date of Last Bowel 09/20 Movement # Bowel Movements 1 Estimated Stool Amount Large # Voids Labs: None today Studies: None today Nutrition: Oral diet Impression: End-stage COPD - little or no chance for improvement. Plan: Patient seen by palliative care service - plan is to send to a [place] for hospice care.
[2016-09-21] MEDS: Piperac/Tazob 3.375 gm in NS* 3.375 GM/100 ML BAG IVPB SCH (06:41)
[2016-09-21] MEDS: Heparin VIAL(*) 5000 UNITS/ML VIAL (FIVE THOUSAND) SUBCUT SCH ×2 (06:41→15:20)
[2016-09-21] MEDS: Mometasone/Formoter 100/5 MDI INH SCH ×2 (07:49→20:02)
[2016-09-21] MEDS: Budesonide NEB* 0.5 MG/2 ML NEB.SOLN INH SCH (07:49)
[2016-09-21] MEDS: Azithromycin IV(*) 500 MG in NS 0.9% 250 ML* 250 ML IVPB SCH (09:21)
[2016-09-21] MEDS: Diltiazem CD CAP* 120 MG PO SCH (09:21)
[2016-09-21] MEDS: predniSONE TAB* 20 MG PO SCH (09:21)
[2016-09-21] MEDS: Amiodarone TAB* 200 MG PO SCH (09:21)
--- NOTE | 2016-09-21 14:08 | PN ---
Critical Care Services: Now off high-flow nasal O2 (and on oxymask with FIO2 of 100%), and maintaining O2 sats above 90%. Being followed by palliative care service, with plans to move to "hospicare" at a care home. Vital Signs: Temp Pulse Resp BP SpO2 FiO2 98.2 F 77 22 138/62 93 100 Physical Exam: Gen:Awake, and appears comfortable in bed. Lungs:Coarse rhonchi. No crackles. Extremities:No cyanosis or edema. Fluid Balance (Past 24 Hours): 09/21/16 06:59 Intake Total 1550 Output Total 875 Balance +675 Weight 142 lb Intake: IV Fluids 550 ABX - AZITHROMYCIN 250 ABX - ZOSYN 300 IVPB ABX - ZOSYN Oral 1000 Output: Urine 875 Emesis 0 Labs: None today Studies: None today Nutrition: Oral diet Impression: End-stage COPD - No evidence of heart failure or active infection. Plan: Tansfer out of ICU and move towards discharge to NH for "comfort measures". Patient is DNR and DNI.
--- NOTE | 2016-09-21 14:37 | PN ---
Progress Note - Progress Note Note: Palliative Care Consult: Patient weaned to oxymask, more dyspneic appearing but denies SOB or pain. Acknowledges that he may pass away while he is in the hospital. He met with Adrienne , and his family and discussed that he is not safe to be discharged back to home. The goal is to transfer to the floor and discharge to [facility] with hospice.
[2016-09-22] MEDS: Diltiazem CD CAP* 120 MG PO SCH (07:52)
[2016-09-22] MEDS: predniSONE TAB* 20 MG PO SCH (07:52)
[2016-09-22] MEDS: Amiodarone TAB* 200 MG PO SCH (07:52)
[2016-09-22] MEDS: Mometasone/Formoter 100/5 MDI INH SCH ×2 (08:14→20:04)
[2016-09-22] MEDS ORDERED: Famotidine TAB* 20 MG PO SCH (09:00)
--- NOTE | 2016-09-22 14:48 | PN ---
Progress Note - Progress Note Note: Patient remains on oxymask at an FIO2 of 100% and is tolerating it clinically. He is alert, oriented, and breathing comfortably. The plan is to transfer him to the hospicare residence when a bed is available. His meds at this point are amiodarone and metoprolol (for AFib), aerosolized bronchodilators, and prednisone.
[2016-09-22 15:37] VITALS: BP 168/76
[2016-09-23] MEDS: Mometasone/Formoter 100/5 MDI INH SCH (07:38)
[2016-09-23] MEDS: Amiodarone TAB* 200 MG PO SCH (09:18)
[2016-09-23] MEDS: predniSONE TAB* 20 MG PO SCH (09:18)
[2016-09-23] MEDS: Diltiazem CD CAP* 120 MG PO SCH (09:18)
--- NOTE | 2016-09-23 11:54 | DS ---
DISCHARGE SUMMARY: DATE OF ADMISSION: 09/17/16 DATE OF DISCHARGE: 09/23/16 HOSPITAL COURSE: This patient is a 75-year-old white male with a history of severe COPD and CHF, who was admitted with pneumonia and progressive respiratory failure. The patient had been on home oxygen and after admission was placed on high-flow, humidified, nasal O2. The patient continued to require high-flow oxygen, and was treated empirically for a community-acquired pneumonia; however, no organism was isolated. The antibiotics were subsequently discontinued. The patient had a cardiac evaluation while in the hospital and including an ultrasound, which showed diastolic dysfunction, but preserved systolic function along with pulmonary hypertension and dilatation of the right heart. After approximately 1 week in the hospital, it was felt that there was nothing further that could be done to improve the patient's cardiorespiratory condition, and the patient was subsequently seen in consultation by the palliative care service - they felt that the patient was a candidate for the hospice service if the inhaled O2 could be weaned to 10 L per minute. Inhaled O2 was subsequently reduced at to 10 L per minute and the patient tolerated it clinically. Plan is to discharge the patient to the hospice residence for comfort care. DISCHARGE DIAGNOSIS: End-stage chronic obstructive pulmonary disease with severe hypoxemic respiratory failure. CONDITION: Not reversible. DISCHARGE MEDICATIONS: 1. Amiodarone 100 mg daily. 2. Diltiazem 120 mg daily. 3. DuoNeb q.4 hours. 4. Dulera 2 puffs twice daily. DISPOSITION: Patient discharged to the hospice residence. [id number]/[facility] #: [id number] MTDD
== END 2016-09-23 12:30 | disposition hospice, inpatient (51) | DRG 871 ==
LOC: ED 02:11 → ICU 06:07
PROVIDERS: ADMIT Internal Medicine; ATTEND Internal Medicine Critical Care Medicine
PROC: 5A09357 Assistance with Respiratory Ventilation, Less than 24 Consecutive Hours, Continuous Positive Airway Pressure (ICD-10-PCS; principal; 2016-09-17)
DX: A41.9 Sepsis, unspecified organism (principal); J18.9 Pneumonia, unspecified organism; J96.21 Acute and chronic respiratory failure with hypoxia; I31.3 Pericardial effusion (noninflammatory); I50.22 Chronic systolic (congestive) heart failure; I27.2 Other secondary pulmonary hypertension; Z99.81 Dependence on supplemental oxygen; J44.9 Chronic obstructive pulmonary disease, unspecified; J43.8 Other emphysema; I48.2 Chronic atrial fibrillation; N18.3 Chronic kidney disease, stage 3 (moderate); Z66 Do not resuscitate; I51.7 Cardiomegaly; Z87.891 Personal history of nicotine dependence
CPT/HCPCS: 36415; 36600; 71010; 80048; 80053; 82803; 83605; 83735; 83880; 84100; 84484; 85025; 85027; 87040; 87070; 87205; 87641; 87899; 93005; 93306; 94640; 94660; 94760; A9270-GY; J0456; J0696; J1644; J1940; J2543; J2930; J7512